=== PATIENT | female | born 1950 ===

== ENCOUNTER 2025-01-30 09:11 | Outpatient (AMB) | payer MEDICARE, MEDICAID, SELFPAY ==
--- OUTSIDE RECORDS SUMMARY | 2023-12-29 08:44 | XMS_ITS | Encounter Summary ---
Author Organization [facility] Address [address] [place] [address] Care Team Providers Care Automatic Die Cutting Machine Operator Name Role Phone James Ryan MD Primary Care Provider [phone] Encounter Details Date Type Department Care Team (Late st Contact Info) Description 12/29/2023 9:44 AM EDT Hospital Encounter TH HISTORIC ENCOUNTERS EASTERN CONVERSION ONLY Joelle Campbell, DO [address] [place] [address] Social History Tobacco Use Types Packs/Day Years Used Date Smoking Tobacco: Never Smokeless Tobacco: Never Alcohol Use Standard Drinks/Week Comments No 0 (1 standard drink = 0.6 oz pur e alcohol) Housing Instability Answer Date Recorde d Are you worried that in the next 2 months you may not have stable housing? No 08/30/2024 Food Access & Nutrition Answer Date Rec orded Do you have access to a vari ety of food including fruits and vegetables? Yes 08/30/2024 Financial Risk Answer Date Recorded How hard is it for you to pa y for the very basics like food, housing, medical care, and air conditioning / heating? Somewhat hard 08/30/2024 Transportation Answer Date Recorded Has the lack of transportati on kept you from meetings, work, or from getting things needed for daily living? No Has the lack of transportati on kept you from medical appointments or from getting medications? No 08/30/2024 Social Isolation Answer Date Recorded How often do you feel lonely or isolated from those around you? Not asked 08/30/2024 Food Risk Answer Date Recorded Within the past 12 months we worried whether our food would run out before we got money to buy more. Never true 08/30/2024 Within the past 12 months th e food we bought just didn't last and we didn't have money to get more. Never true 08/30/2024 Dependent Care Answer Date Recorded Do you need help finding or paying for care for your loved ones. For example, summer child caregiver or elderly care for an older adult? No 08/30/2024 Education Answer Date Recorded Do you think completing more education or training, like finishing a GED, going to college, or learning a trade, would be helpful for you? N/A 08/30/2024 Employment and Income Answer Date Recor ded During the last four weeks, have you been actively looking for work? No 08/30/2024 Living Situation Answer Date Recorded What is your living situation? Unrecognized valu e 08/30/2024 Comments No Sex and Gender Information Value Date Recorded Sex Assigned at Female 06/03/2024 9:31 AM EDT Legal Sex Female 2:52 AM EST Gender Identity Female 06/03/2024 9:31 AM EDT Sexual Orientation Straight 06/03/2024 9: 31 AM EDT documented as of this encounter Last Filed Vital Signs Vital Sign Reading Time Taken Comments Blood Pressure 142/80 12/29/2023 9:55 AM EDT Sit ting Left arm Pulse 69 12/29/2023 9:55 AM EDT Temperature - - Respiratory Rate - - Oxygen Saturation - - Inhaled Oxygen Concentration - - Weight 59 kg (130 lb) 12/29/2023 9:55 AM EDT Height 162.6 cm (5' 4 ) 12/29/2023 9:55 AM EDT Body Mass Index 22.31 12/29/2023 9:55 AM EDT documented in this encounter Progress Notes * Joelle Campbell DO - 12/29/2023 10:00 AM EDT Images from the original note were not included. 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 States the healing process was prolonged. Now her knee does feel much better. Reports the contralateral knee is now causing her discomfort. Also during the postoperative time she fell and broke her wrist and required surgery in the wrist. She developed infection at the surgical site as well. Currently biggest complaint remains ongoing arthralgias. She does get steroid injections for this. Still with some occasional bruises. Feels that yesterday she developed a sore throat with a low-grade temperature. No cough shortness of breath or congestion. Constitutional: See above Resp/CV: No cough, shortness of breath, chest pain GI: No nausea, vomiting, diarrhea, Skin: No rashes Neuro: No headaches, dizziness, neuropathy Musculoskeletal: No bone pain, + joint pain. Hem/Lymph : No palpable lymph nodes, Oncology history: Patient first presented in August 2022 with easy bruising and was seen by Dr. Chopra. She has had persistence of the symptoms but not also notably persistence of mild leukocytosis with WBC between 12 and 17,000. Differential is essentially normal. Hemoglobin is 13 platelet count 139,000. As of 01/13/2022. No febrile difficulties. Patient is not aware of any use of steroid. She is followed by rheumatology. She is not using fluticasone on any regular basis Prior laboratory data within the course of the last few months patient did have mild elevation of rheumatoid factor (less than 15), ALEA screen was positive with a titer of 1-320 in a nucleolar pattern. Lyme testing had been negative. Previously there have been no evidence of abnormality with regardto coags or von Willebrand factor activity or platelet aggregation studies. As noted no constitutional complaints at this time Objective Last Vitals Vitals: 12/29/23 0955 BP: 142/80 Pulse: 69 Temp: 98 ??F (36.7 ??C) TempSrc: Temporal SpO2: 100% Weight: 59 kg (130 lb) Height: 5' 4 (1.626 m) PainLoc: Generalized ECO General: Elderly, well-nourished woman, seated comfortably. HENT: no scleral icterus Lymph: No palpable cervical, supraclavicular or axillary adenopathy. Resp: clear to auscultation bilaterally Cardio: regular rate and rhythm, no murmurs Abdomen: soft non tender, non distended MSK: trace edema at both ankles. .Neuro: alert and oriented, normal speech Medications Current Outpatient Medications: ? CARTIA XT 240 MG 24 hr capsule ? cephalexin (KEFLEX) 500 MG capsule ? Cholecalciferol (D 1000) 1000 units capsule ? clonazePAM (KlonoPIN) 0.5 MG tablet ? cyclobenzaprine (FLEXERIL) 5 MG tablet ? fluticasone (FLONASE) 50 MCG/ACT nasal spray ? hydroCHLOROthiazide (MICROZIDE) 12.5 MG capsule ? oxyCODONE (ROXICODONE) 5 MG immediate release tablet ? pravastatin (PRAVACHOL) tablet 20 mg ? promethazine (PHENERGAN) 12.5 MG tablet ? vitamin E (E-400) 400 UNIT capsule Allergies No Known Allergies Past medical history, past surgical history, and family history reviewed. Medical history Past Medical History: Diagnosis Date ? Hypertension ? Osteoporosis Surgical history Past Surgical History: Procedure Laterality Date ? BACK SURGERY ? SHOULDER SURGERY Family history Family History Problem Relation Age of Onset ? Hypertension Mother ? Hyperlipidemia Mother ? Hyperlipidemia Father ? Heart disease Sister ? Clotting disorder Sister Social history She is , lives with her , both are korean speaking. She lives in [place]. Son is next of kin. Labs: Relevant data reviewed. Assessment & Plan 73 year old female with history of easy bruising and monoclonal b cell lymphocytosis. Bone marrow biopsy shows involvement by b cell lymphoproliferative disorder which is not further classified. CT imaging shows no adenopathy or splenomegaly. She has had full work up for extent of her bruising, all of which has been negative at this time. Repeat blood count shows ongoing improvement of WBC down to 12.4, no anemia or thrombocytopenia, nosignificant rise of lymphocytes. Monoclonal B cell lymphocytosis / CLL, IGVH mutated Continue to monitor on active surveillance, no indication for therapy at this time Ordered labs to be done again in 3 months CBCD, CMP, quantitative immunoglobulins. call sooner with any new symptoms or concerns. Pancreatic cyst/IPMN remains stable, no intervention Next MRI recommended by radiology April 2025. Ishmael Campbell, DO - Hematology/Oncology [facility] CC:James Ryan MD documented in this encounter Plan of Treatment Upcoming Encounters Date Type Department Care Team (Late st Contact Info) Description 02/12/2025 11:00 AM EST Office Visit Internal Medicine - [address] [phone] James Rayn MD [address] [place] [address] 02/27/2025 12:30 PM EST Appointment [facility] [address] [place] [id number] Dillan Ng MD [address] [facility] [address] [place] [address] documented as of this encounter Procedures Procedure Name Priority Date/Time Associated Diagnosis Comments ..MISCELLANEOUS REFERENCE LAB TEST 12/29/2023 documented in this encounter Results * Miscellaneous reference lab test (12/29/2023) us Provider Onbase LAB BLOOD ORDERABLES Final Re sult documented in this encounter Visit Diagnoses Not on filedocumented in this encounter Care Teams Automatic Die Cutting Machine Operator Relationship Specialty Start Date End Date James Ryan MD PCP - General Internal Medicine 01/28/15 01/22/24 documented as of this encounter
--- NOTE | 2025-01-30 09:10 | A.PHYSOV_ITS ---
Intake Visit Reasons: Right knee injection Intake Note: Patient is a 74 year old female here today for right shoulder injection. Gm Mobile Required: No Allergies No Known Allergies Allergy (Verified 01/30/25 09:12) PFS Surgical History H/O shoulder surgery (Unknown) Social History Patient Tobacco Use Status: Never used Tobacco Current occupational status: retired Office Procedures AMB Knee Injection AMB Knee Injection Procedure Details: Right Knee injection: The risks, benefits and complications of the right knee injection were discussed with the patient including but not limited to increased serum glucose, infection, nerve pain, fat atrophy, pigment augmentation, bleeding and pain. All questions were answered to the patient's satisfaction. Verbal consent was obtained. The patient was eager to proceed. Using aseptic technique with Betadine, ethyl chloride was then used to desensitize the skin. Using a 22-gauge needle 40mg of Kenalog and 3 mL 2% lidocaine were injected into the knee joint. A Band-Aid was applied. Patient tolerated the procedure well without immediate complication. Postinjection instructions were given. Knee Injection - : Right All charges added?: Procedure code (CPT) selection complete Office Meds Kenalog 40 mg/mL suspension for injection Performing Provider: SASHA Khalil Performing Location: [facility] Administered by: SASHA Khalil on 01/30/25 09:29 Dose Route Admin Location Dispensed Lot Number Expiration Date [facility] Medical Language Specialist 40 mg intra-articular 1 mL [id number] [employer] Total Dispensed Waste 1 mL 0 % lidocaine (PF) 20 mg/mL (2 %) injection solution Performing Provider: SASHA Khalil Performing Location: [facility] Administered by: SASHA Khalil on 01/30/25 09:29 Dose Route Admin Location Dispensed Lot Number Expiration Date [facility] Medical Language Specialist 60 mg intra-articular 3 mL [id number] Total Dispensed Waste 3 mL 0 % Assessment & Plan Assessment & Plan (1) Primary osteoarthritis of right knee: Code(s): M17.11 - Unilateral primary osteoarthritis, right knee Category: Medical Plan Ms. Gooden is a 74-year-old female seen in evaluation today for right knee osteoarthritis. Today she consented to right knee corticosteroid injection. He was given post-injection instructions, recommend: Moist heat compresses 15 minutes 5 times daily. Continue low-impact activities such as walking, biking swimming. Follow-up in our office in 3 months as needed. Thank you for allowing me to participate in the care of your patient. Orders: Orders AMB Knee Injection Today M17.11 - Unilateral primary osteoarthritis, right knee Coding Level of Care Code Procedure Only Diagnoses Primary osteoarthritis of right knee M17.11 CPT Codes AMB Knee Injection - Hip/Bursa Injection - 89470: Right ([id number])
--- OUTSIDE RECORDS SUMMARY | 2025-01-30 10:13 | XMS_ITS | Clinical Summary ---
Author Organization [facility] Address [address] [place] [address] Care Team Providers Care Employee Communications Coordinator Name Role Phone James Ryan MD Primary Care Provider [phone] Allergies No known active allergies Medications Medication Sig Dispensed Refills Start Date End Date Status vitamin E (E-400) 400 UNIT capsule Take 400 Units by mouth. 0 Active pravastatin (PRAVACHOL) tablet 20 mg Take 10 mg by mouth. 0 Active hydroCHLOROthiazide (MICROZIDE) 12.5 MG capsule TK 1 C PO QAM 1 11/21/2017 Active CARTIA XT 240 MG 24 hr capsule TK 1 C PO BID 1 10/31/2017 Active Cholecalciferol (D 1000) 1000 units capsule Take 1,000 Units by mouth. 0 Active clonazePAM (KlonoPIN) 0.5 MG tablet TK 1 T PO BID PRF ANXIETY FOR UP TO 28 DAYS 0 01/19/2018 Active fluticasone (FLONASE) 50 MCG/ACT nasal spray U 1 SPRAY IN BOTH NOSTRILS DAILY 4 01/19/2018 Active oxyCODONE (ROXICODONE) 5 MG immediate release tablet Take 1 tablet (5 mg total) by mouth every 6 (six) hours as needed for pain. Do not take until after surgery 30 tablet 0 07/30/2018 Active promethazine (PHENERGAN) 12.5 MG tablet Take 1 tablet (12.5 mg total) by mouth every 8 (eight) hours as needed for nausea. Do not take until after surgery 4 tablet 0 07/30/2018 Active cephalexin (KEFLEX) 500 MG capsule Take 1 capsule (500 mg total) by mouth 4 (four) times a day. Do not take until after surgery 4 capsule 0 07/30/2018 Active cyclobenzaprine (FLEXERIL) 5 MG tablet Take 1 tablet (5 mg total) by mouth 2 (two) times a day as needed for muscle spasms. 15 tablet 0 12/10/2018 Active Active Problems Problem Noted Date Diagnosed Date 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 Bruising 09/06/2021 Chronic constipation 05/14/2018 Chronic pain in right shoulder 12/15/2017 Spinal stenosis of lumbar re gion without neurogenic claudication 04/26/2017 Spinal stenosis 04/25/2017 Lumbar disc herniation with radiculopathy 2016 Ascending aortic aneurysm 10/10/2014 Overview: Overview: [facility] 10/06/14 Arthralgia 11/04/2013 Lumbar back pain 08/22/2011 Overview: Overview: L2-3 disc herniation; MRI 07/29 L4-L5 decompression with Dr. Briscoe on 04/25/2017 Back pain 07/13/2011 Tubular adenoma of colon 05/11/2011 Overview: Overview: 08/26 Renal cyst 11/07/2010 Overview: Overview: [facility] (PVU) 10/28-rpt Sono 1 yr Anxiety 12/17/2008 Pituitary adenoma 05/07/2008 Pulmonary nodule 10/31/2007 Overview: Overview: 10/[address] Lung 6 mos; CT 04/28 No Nodules Hyperlipidemia 09/13/2007 Hypertension 04/08/2005 Adverse reaction to anterior pituitary hormone 0 04/08/2005 Overview: Overview: surgery ; RT 3- [facility] update Family History Medical History Relation Name Comments Hyperlipidemia Father Hyperlipidemia Mother Hypertension Mother Clotting disorder Sister Heart disease Sister Relation Name Status Comments Father Mother Sister Social History Tobacco Use Types Packs/Day Years Used Date Smoking Tobacco: Never Smokeless Tobacco: Never Alcohol Use Standard Drinks/Week Comments No 0 (1 standard drink = 0.6 oz pur e alcohol) Sex and Gender Information Value Date Recorded Sex Assigned at Not on file Gender Identity Not on file Sexual Orientation Not on file Job Start Date Occupation Industry Not on file Not on file Not on file Last Filed Vital Signs Vital Sign Reading Time Taken Comments Blood Pressure 142/80 12/29/2023 9:55 AM EDT Pulse 69 12/29/2023 9:55 AM EDT Temperature 36.7 C (98 F) 12/29/2023 9:55 AM EDT Respiratory Rate - - Oxygen Saturation 100% 12/29/2023 9:55 AM EDT Inhaled Oxygen Concentration - - Weight 59 kg (130 lb) 12/29/2023 9:55 AM EDT Height 162.6 cm (5' 4 ) 12/29/2023 9:55 AM EDT Body Mass Index 22.31 12/29/2023 9:55 AM EDT Plan of Treatment Health Maintenance Due Date Last Done Comments Hepatitis C Screening 1950 Depression Screening 1962 Preventative Health Evaluation 1968 Colon Cancer Screening (Colonoscopy) 1995 Breast Cancer Screening (Mammogram) 2000 Shingrix-Zoster Vaccine (1 of 2) 2000 Fall Risk Assessment 2015 Osteoporosis Screening (DEXA Scan) 2015 DTap / Tdap / Td (3 - Td or Tdap) 08/16/2024 08/16/2014, 10/02/2006 COVID-19 Vaccine ( season) 2024 04/01/2021, 07/15/2020, 06/24/2020 Influenza Vaccine (#1) 2024 4, 02/23/2022, 12/28/2020, Additional history exists RSV Adult > 60+ Yrs or (1 - 1-dose 75+ series) 2025 Pneumococcal Vaccine Completed 01/23/2020, 12/12/2018, 01/13/2016 Hepatitis B Vaccines Aged Out No long er eligible based on patient's age to complete this topic RSV Ped < 20 months Aged Out No longe r eligible based on patient's age to complete this topic Care Teams Employee Communications Coordinator Relationship Specialty Start Date End Date James Ryan MD PCP - General Internal Medicine 04/10/20
--- OUTSIDE RECORDS SUMMARY | 2025-01-30 10:13 | XMS_ITS | Clinical Summary ---
Author Organization [facility] Address [address] [place] [address] Phone Care Team Providers Care Cost Estimating Engineer Name Role Phone James Ryan MD Primary Care Provider [phone] Allergies No known active allergies Medications cholecalcifero l (VITAMIN D-3) 25 mcg (1,000 unit) capsule Take 1 capsule (1,000 Units total) by mouth. Active vitamin E mixed 400 unit capsule Take 400 Units by mouth. Active dilTIAZem CD (CARDIZEM CD) 240 mg 24 hr capsule TAKE 1 CAPSULE(240 MG) BY MOUTH TWICE DAILY 180 capsule 09/03/19 25 Active acetaminophen (TylenoL) 325 mg tablet Take 3 tablets (975 mg total) by mouth every 8 (eight) hours if needed. 08/03/19 25 Active lidocaine 5 % cream Apply 1 each topically 1 (one) time each day. 08/03/19 25 Active docusate sodium (COLACE) 100 mg capsule Take 1 capsule (100 mg total) by mouth 2 (two) times a day. Active polyethylene glycol (MIRALAX) 17 gram packet Take 17 g by mouth 1 (one) time each day. Active senna (SENOKOT) 8.6 mg tablet Take 1 tablet (8.6 mg total) by mouth 1 (one) time each day. Active pravastatin (PRAVACHOL) 40 mg tablet Take 1 tablet (40 mg total) by mouth 1 (one) time each day. 90 tablet 1 09/18/19 25 Active furosemide (LASIX) 20 mg tablet Take 1 tablet (20 mg total) by mouth 1 (one) time each day. 90 each 3 09/18/19 25 Active Additional Information Patient not taking.Reported on 12/25/2024 ondansetron (ZOFRAN) 4 mg tablet Take 1 tablet (4 mg total) by mouth every 8 (eight) hours if needed for nausea. 20 tablet 1 12/13/19 25 Active omeprazole (PriLOSEC) [address] capsule Take 1 capsule (40 mg total) by mouth 1 (one) time each day. Do not crush or chew. 90 each 1 12/13/19 25 026 Active meclizine (ANTIVERT) 25 mg tablet Take 1 tablet (25 mg total) by mouth 3 (three) times a day if needed for dizziness. 45 tablet 1 12/18/19 25 Active spironolactone (ALDACTONE) 25 mg tablet 09/05/19 25 Active methylPREDNISo lone (MEDROL DOSPAK) 4 mg tablet See administration instructions. 11/07/19 25 Active lisinopriL (PRINIVIL,ZEST RIL) 10 mg tablet Take 1 tablet (10 mg total) by mouth 1 (one) time each day. 12/03/19 25 Active ibuprofen (ADVIL,MOTRIN) 800 mg tablet 1 tablet three times daily as needed 09/27/19 25 Active gabapentin (NEURONTIN) 100 mg capsule Take 1 capsule (100 mg total) by mouth. 08/03/19 25 Active diclofenac (CATAFLAM) 50 mg tablet Take 1 tablet (50 mg total) by mouth. 11/08/19 25 Active celecoxib (CeleBREX) 100 mg capsule Take 1 capsule (100 mg total) by mouth 1 (one) time each day. 11/26/19 25 Active buprenorphine (BUTRANS) 10 mcg/hour APPLY PATCH TO THE SKIN EVERY 7 DAYS REMOVE PATCH BEFORE APPLYING ANOTHER 12/12/19 25 Active amoxicillin (AMOXIL) 500 mg capsule TAKE 4 CAPSULES BY MOUTH ONE HOUR BEFORE DENTAL VISIT 09/27/19 25 Active clonazePAM (KlonoPIN) 0.5 mg tablet TAKE 1 TABLET(0.5 MG) BY MOUTH TWICE DAILY NEEDED FOR ANXIETY. MAX DAILY AMOUNT: 1 MG 56 tablet 01/02/20 25 Active oxyCODONE-acet aminophen (PERCOCET) 10-325 mg per tabletIndicati ons:Chronic pain syndrome Take 1 tablet by mouth every 6 (six) hours if needed for severe pain for up to 28 days. Max Daily Amount: 4 tablets 112 tablet 01/22/20 25 025 Active clonazePAM (KlonoPIN) 0.5 mg tablet TAKE 1 TABLET(0.5 MG) BY MOUTH TWICE DAILY NEEDED FOR ANXIETY. MAX DAILY AMOUNT: 1 MG 56 tablet 11/29/19 25 025 Discontin ued(Reord er) oxyCODONE-acet aminophen (PERCOCET) 10-325 mg per tabletIndicati ons:Chronic pain syndrome Take 1 tablet by mouth every 6 (six) hours if needed for severe pain for up to 28 days. Max Daily Amount: 4 tablets 112 tablet 12/25/19 25 025 Discontin ued(Reord er) oxyCODONE-acet aminophen (PERCOCET) 10-325 mg per tabletIndicati ons:Chronic pain syndrome Take 1 tablet by mouth every 6 (six) hours if needed for severe pain for up to 28 days. Max Daily Amount: 4 tablets 112 tablet 01/22/20 25 025 Discontin ued(Reord er) Active Problems Problem Noted Date Diagnosed Date Atrial fib/flutter, transient (CMS/HCC V24, CMS/ HCC V28) 12/12/2024 Status post closed fracture of right femur 09/11 Chronic pain syndrome 09/11/2024 CLL (chronic lymphocytic yin kemia) (CMS/HCC V24, CMS/HCC V28) 09/11/2024 Coronary artery calcification of [place] artery 0 09/04/2024 Overview (09/04/2024): - Incidentally noted on CT of the chest in 2022 - No anginal symptoms so managing medically Bilateral leg edema 01/23/2024 Assessment & Plan (01/23/2024 2:45 PM EST): Reported by patient and patient's son who is translating at the appointment today. However patient is completely euvolemic on exam today. Mention to patient that she could try utilizing compression stockings, can try elevating her feet when she is watching TV and adhering to a cardiac healthy diet which includes limiting salt and fat intake. Potential that calcium channel oksana diltiazem is contributing to the lower extremity edema. However, patient is taking 12.5 of hydrochlorothiazide and I believe that switching the patient to furosemide would contribute to better diuretic effect. Will have patient draw BMP in 1 week. Will patient take blood pressures over the next week and report values. Patient has been asked to report to the office if she experiences any new symptoms. Venous insufficiency 01/23/2024 Assessment & Plan (01/23/2024 2:47 PM EST): Reported by patient and patient's son who is translating at the appointment today. However patient is completely euvolemic on exam today. Mention to patient that she could try utilizing compression stockings, can try elevating her feet when she is watching TV and adhering to a cardiac healthy diet which includes limiting salt and fat intake. Potential that calcium channel oksana diltiazem is contributing to the lower extremity edema. However, patient is taking 12.5 of hydrochlorothiazide and I believe that switching the patient to furosemide would contribute to better diuretic effect. Will have patient draw BMP in 1 week. Will patient take blood pressures over the next week and report values. Patient has been asked to report to the office if she experiences any new symptoms. 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 Spinal stenosis of lumbar re gion without neurogenic claudication 03/11/2020 Chronic constipation 05/14/2018 Chronic pain in right shoulder 12/15/2017 Spinal stenosis 04/25/2017 Lumbar disc herniation with radiculopathy 2016 Ascending aortic aneurysm ([facility] V24) 10/11/19 15 Overview (09/04/2024): -Incidental finding by CAT scan several years ago -Saw cardiac surgery in 2016 for evaluation and was recommended to have yearly surveillance CT scans -Had an echocardiogram in 11/2020 which showed preserved ejection fraction of 55 to 60%, no regional wall motion abnormalities, normal diastolic function, no hemodynamically significant valve disease with trileaflet aortic valve, upper normal aortic root at 3.7 cm and dilated ascending aorta at 4.2 cm-anny to what we are seeing on CT scan below. -Repeat echocardiogram in 01/2022 revealed normal biventricular size. Normal right ventricular systolic function. Grossly normal left ventricular systolic function though all [place] are not well-visualized. Estimated ejection fraction 55 to 60%. Compared to prior study the ascending aorta may have grown slightly from 4.2 to 4.3 cm. Aortic root size is stable. The aortic arch was not well-visualized on today's study. - CT of the chest: 2022, No evidence of any measurement of the thoracic aorta on official report but did show evidence of coronary artery calcification; on my independent review, I get an ascending aortic measurement of 3.6 x 3.5 cm (sagittal by coronal dimensions)-which is likely normal for age and body surface area; and aortic root measurement of 3.9 cm in sagittal view-which may be mildly dilated or upper normal for age and body surface area Assessment & Plan (01/23/2024 1:51 PM EST): Patient had chest CT on 11/07/2023 the ascending aorta measures up to 4.2 x 4.1 cm, unchanged. Mild to moderate arthrosclerotic plaque. Normal caliber torturous descending thoracic aorta. This is an unchanged dilatation of the ascending aorta up to 4.2 cm. Plan will be to continue surveillance. Arthralgia 11/04/2013 Lumbar back pain 08/22/2011 Overview (05/17/2023): L2-3 disc herniation; MRI 07/29 L4-L5 decompression with Dr. Briscoe on 04/25/2017 Tubular adenoma of colon 05/11/2011 Overview (05/17/2023): 08/26 Renal cyst 11/07/2010 Overview (05/17/2023): Ascher (PVU) 10/28-rpt Sono 1 yr Anxiety 12/17/2008 Pituitary adenoma ([facility] V24, CMS/HCC V28) Lung mass 10/31/2007 Overview (05/17/2023): 10/[address] Lung 6 mos; CT 04/28 No Nodules Hyperlipidemia 09/13/2007 Assessment & Plan (01/23/2024 2:48 PM EST): Patient has been advised to adhere to a cardiac healthy diet which includes fats low in sodium and fat. Patient is also currently utilizing pravastatin. Hypertension 04/08/2005 Assessment & Plan (01/23/2024 2:39 PM EST): Blood pressure is well-controlled. Patient has been asked to take blood pressure measurement every day at least 2 hours after she takes her blood pressure medications. Should report to the office if she receives values consistently that are outside normal limits. She has also been educated on signs of worsening symptoms and when to report to the office or when to present to the ED. Adverse reaction to anterior pituitary hormone 0 04/08/2005 Overview (05/17/2023): Overview: surgery ; RT 3- IMO update Encounters Date Type Department Care Team Description 01/15/2025 Telephone Internal Medicine - [address] [phone] James Ryan MD 01/09/2025 Telephone Internal Medicine - [address] [phone] Deb Link MA 12/25/2024 9:00 AM EDT Consult Gastroenterology - [place] [address] [place] [phone] Estrellita Espino NP Epigastric abdominal pain (Primary Dx); Gastroesophageal reflux disease, unspecified whether esophagitis present; Screening for colorectal cancer 12/25/2024 Telephone Gastroenterology - [place] [address] [place] [phone] Estrellita Espino NP 12/12/2024 8:15 AM EDT Office Visit Internal Medicine - [address] [phone] James Ryan MD Atrial fib/flutter, transient (CMS/HCC V24, CMS/[facility] V28) (Primary Dx); Generalized abdominal pain; Lumbar disc herniation with radiculopathy 12/12/2024 [facility] [address], [place] [phone] James Ryan MD 12/12/2024 [facility] [phone] James Ryan MD 12/06/2024 [facility] [address], [place] [phone] James Ryan MD 12/05/2024 [facility] [phone] James Ryan MD 12/02/2024 [facility] [address] [phone] James Ryan MD 11/25/2024 8:52 AM EDT - 11/25/2024 11:59 PM EDT [facility] [address] [place], [place] [address] [phone] Wheeze Discharge Disposition: Home or Self Care 11/25/2024 [facility] [address] [phone] James Ryan MD from Last 3 Months Immunizations Immunization Administration Dates Next Due Pfizer SARS-CoV-2 COVID-19, mRNA, LNP-S, preservative free 04/01/2021,07/15/2020,06/24/2020 Surgical History Surgery Date Site/Laterality Comments OTHER SURGICAL HISTORY 07/23 PROCEDURE: PAP SMEAR (1 SLIDE); COMMENT: Dulce; neg OTHER SURGICAL HISTORY 07/24 PROCEDURE: MAMMOGRAM; COMMENT: neg OTHER SURGICAL HISTORY 02/22 PROCEDURE: NE ECHO TRANSTHORAC R-T 2D W/WO M-MODE REC COMP; COMMENT: neg OTHER SURGICAL HISTORY 02/20 PROCEDURE: DUAL ENERGY X-RAY ABSORPTIOMETRY; COMMENT: normal COLONOSCOPY 08/25/08 PROCEDURE: NE COLONOSCOPY STOMA DX INCLUDING COLLJ SPEC SPX; COMMENT: Up to cecum, good preparation, small rectal polyp removed. BACK SURGERY 04/25/2017 Right PROCEDURE: HISTORICAL BACK SURGERY; COMMENT: right L4-L5 decompression BACK SURGERY PROCEDURE: HISTORICAL BACK SURGERY; COMMENT: lumbar decompression SHOULDER SURGERY 07/2018 Right PROCEDURE: HISTORICAL SHOULDER SURGERY; COMMENT: not helpful BACK SURGERY PROCEDURE:BACK SURGERY SHOULDER SURGERY PROCEDURE:SHOULDER SURGERY Medical History Medical History Date Comments Anterior pituitary hormones causing adverse effect in therapeutic use 04/08/2005 DX:Anterior pituitar y hormones causing adverse effect in therapeutic use; COMMENT: surgery ; RT 3- Other and unspecified hyperlipidemia 09/13/2007 DX:Other and unspecified hyperlipidemia Historical Medical DX 10/31/2007 DX:Pulmona ry nodule; COMMENT: 10/[address] Lung 6 mos Pituitary adenoma (CMS/HCC V 24, CMS/HCC V28) 05/07/2008 DX:Pituitary adenoma (HCC) Essential hypertension, benign 04/08/2005 D X:Essential hypertension, benign Renal cyst 11/07/2010 DX:Renal cyst Basal cell carcinoma (BCC) of face 01/14/2020 DX:Basal cell carcinoma (BCC) of face; COMMENT: Left nare, right inner cheek under eye, BX 12/23/2019 referred for MOHS surgery Allergic rhinitis due to pollen 06/13/2019 DX:Allergic rhinitis due to pollen Spondylosis of lumbar region without myelopathy or radiculopathy 05/15/2019 DX:Spondylosis of lumbar r egion without myelopathy or radiculopathy Chronic constipation DX:Chronic constipation Hypertension DX:Hypertension Osteoporosis DX:Osteoporosis Family History Medical History Relation Name Comments Hyperlipidemia Father Hypertension Father Other: pvd Father Other: Other Maternal Grandfather paralys is later in life Stroke Maternal Grandmother Coronary artery disease Mother suddenly in the field 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 and lived on Hyperlipidemia Mother Hypertension Mother No Known Problems Paternal Grandfather Other: Other Paternal Grandmother in childbirth Other: aortic aneurysm Sister 1 of dissection/rupture No Known Problems Sister 2 Clotting disorder Sister 3 Heart disease Sister 3 No Known Problems Son Breast cancer Neg Hx Relation Name Status Comments Father Maternal Grandfather Maternal Grandmother Mother Paternal Grandfather Paternal Grandmother Sister 1 Sister 2 Alive Sister 3 Son Alive Social History Tobacco Use Types Packs/Day Years Used Date Smoking Tobacco: Never Smokeless Tobacco: Never Tobacco Cessation:Counseling Given: Not Answered Alcohol Use Standard Drinks/Week Comments No 0 [...] care for your loved ones. For example, child welfare assistant or elderly care for an older adult? [...] Orientation Straight 06/03/2024 9: 31 AM EDT Obstetrics History Last Filed Vital Signs Vital Sign Reading Time Taken Comments Blood Pressure 100/60 12/25/2024 9:03 AM EDT Pulse 103 12/25/2024 9:03 AM EDT Temperature 37.1 C (98.7 F) 06/19/2024 1:11 PM EDT Respiratory Rate - - Oxygen Saturation 96% 12/25/2024 9:03 AM EDT Inhaled Oxygen Concentration - - Weight 64.7 kg (142 lb 9.6 oz) 12/25/2024 9:03 A M EDT Height 162.6 cm (5' 4 ) 12/25/2024 9:03 AM EDT Body Mass Index 24.48 12/25/2024 9:03 AM EDT Plan of Treatment Upcoming Encounters Date Type Department Care Team (Late st Contact Info) Description 02/12/2025 11:00 AM EST Office Visit Internal Medicine - [address] [phone] James Ryan MD [address] [place] [address] 02/27/2025 12:30 PM EST Appointment [facility] [address] [place] [phone] Dillan Ng MD [address] [facility] [address] [place] [address] Health Maintenance Due Date Last Done Comments Colorectal Cancer Screening: Colonoscopy 1950 Zoster Vaccines (1 of 2) 1969 Falls Risk Assessment 02/26/2022 Hepatitis C Screening 02/26/2022 Medicare Annual Wellness Visit 02/26/2022 Osteoporosis Screening (Bone Density Screening) 02/26/2022 Breast Cancer Screening 12/11/2023 12/11/19, 07/09/2021, 01/01/2021, Additional history exists COVID-19 Vaccine ( season) 2024 04/01/2021, 07/15/2020, 06/24/2020 Influenza Vaccine (#1) 2024 4, 02/23/2022, 12/28/2020, Additional history exists RSV Immunization Adult Patients (1 - 1-dose 75+ series) 2025 Social Influencers of Health Screening 08/30/2025 08/30/2024 Hypertension/CHF/CAD Annual BMP Blood Test 09/11/2025 09/11/2024, 09/04/2024, 08/29/2024, Additional history exists Cholesterol Screening (Lipid Panel) 04/15/2029 04/15/2024, 10/24/2023, 09/19/2023 DTaP,Tdap,and Td Vaccines (5 - Td or Tdap) 03/05/2034 03/05/2024, 12/06/2023, 08/16/2014, Additional history exists Pneumococcal Vaccine: 50+ Years Completed 01/23/2020, 12/12/2018, 01/13/2016 Depression Screening Completed 05/25/2024 HIB Vaccines Aged Out No longer eligi ble based on patient's age to complete this topic HPV Vaccines Aged Out No longer eligi ble based on patient's age to complete this topic Hepatitis A Vaccines Aged Out No long er eligible based on patient's age to complete this topic Hepatitis B Vaccines Aged Out No long er eligible based on patient's age to complete this topic IPV Vaccines Aged Out No longer eligi ble based on patient's age to complete this topic MMR Vaccines Aged Out No longer eligi ble based on patient's age to complete this topic Meningococcal ACWY Vaccine Aged Out N o longer eligible based on patient's age to complete this topic Meningococcal B Vaccine Aged Out No l onger eligible based on patient's age to complete this topic RSV Immunization Patients Under 20 months Aged Out No longer eligible based on patient's age to complete this topic Varicella Vaccines Aged Out No longer eligible based on patient's age to complete this topic Goals Goal Patient Goal Type Associated Problems Recent Progress Patient-Stated? Author Autogenera indu Goal Care Plan Autogenerated Problem No Dipti Kirkpatrick Procedures Procedure Name Priority Date/Time Associated Diagnosis Comments XR CHEST 2 VIEWS Routine 11/25/2024 8:56 AM EDT Wheeze BASIC METABOLIC PANEL Routine 09/11/2024 1:52 PM EDT Venous insufficiency LIPID PANEL WITH REFLEX TO DIRECT LDL Routine 04/15/2024 11:46 AM EST Atrial fib/flutter, transient (CMS/HCC V24, CMS/HCC V28) Primary hypertension SCREENING MAMMOGRAPHY BI 2-VIEW BREAST INC CAD Routine 12/10/2021 1:57 PM EDT Encounter for screening mammogram for malignant neoplasm of breast from Last 3 Months or Most Recently Relevant to Health Maintenance Results * XR Chest 2 Views (11/25/2024 8:56 AM EDT) Anatomical Region Laterality Modality Body Radiographic Alecia ging 11/25/2024 10:1 8 AM EDT Impressions 11/25/2024 10:25 AM EDT No evidence of an acute chest process. POS - [id number] -------- FINAL REPORT -------- Dictated By: Pilar Troncoso Dictated Date: 11/25/2024 10:18 ET Assigned Physician: Pilar Troncoso Reviewed and Electronically Signed By: Pilar Troncoso Signed Date: 11/25/2024 10:25 ET Workstation ID: [id number] Transcribed By: Self Edit Transcribed Date: 11/25/2024 10:18 ET Narrative 11/25/2024 10:25 AM EDT EXAM: Chest x-ray HISTORY: Episodic wheeze. COMPARISON: 06/19/2024, 06/28/2023, 04/09/2021, and 09/10/2020 FINDINGS: PA and lateral views of the chest were performed. Mild linear opacities at the left lung base probably represent atelectasis or scarring. Stable minimal linear scarring in the left mid lung. No focal infiltrate, pleural effusion, or evidence of pulmonary edema. Heart is not enlarged. Stable tortuous thoracic aorta. Mediastinal contours are unchanged. Chronic scoliotic curvature of the thoracolumbar spine with multilevel degenerative changes. Procedure Note Pilar Troncoso MD - 11/25/2024 EXAM: Chest x-ray HISTORY: Episodic wheeze. COMPARISON: 06/19/2024, 06/28/2023, 04/09/2021, and 09/10/2020 FINDINGS: PA and lateral views of the chest were performed. Mild linear opacities at the left lung base probably represent atelectasisor scarring. Stable minimal linear scarring in the left mid lung. No focalinfiltrate, pleural effusion, or evidence of pulmonary edema. Heart is notenlarged. Stable tortuous thoracic aorta. Mediastinal contours areunchanged. Chronic scoliotic curvature of the thoracolumbar spine withmultilevel degenerative changes. IMPRESSION: No evidence of an acute chest process. POS - [id number] -------- FINAL REPORT -------- Dictated By: Pilar Troncoso Dictated Date: 11/25/2024 10:18 ET Assigned Physician: Pilar Troncoso Reviewed and Electronically Signed By: Pilar Troncoso Signed Date: 11/25/2024 10:25 ET Workstation ID: [id number] Transcribed By: Self Edit Transcribed Date: 11/25/2024 10:18 ET us Richard Vanegas DO IMG XR PROCEDURES Final Res ult * (ABNORMAL) Basic metabolic panel (09/11/2024 1:52 PM EDT) Sodium 136 133 - 145 mmol/L LAB CHEMISTRY METHOD 09/11/2024 6:47 PM EDT [facility] Potassium 3.9 3.5 - 5.5 mmol/L LAB CHEMISTRY METHOD 09/11/2024 6:47 PM EDT [facility] Chloride 105 96 - 110 mmol/L LAB CHEMISTRY METHOD 09/11/2024 6:47 PM [facility] CO2 23 21 - 32 mmol/L LAB CHEMISTRY METHOD 09/11/2024 6:47 PM T [facility] Anion Gap 8 3 - 11 LAB CHEMISTRY METHOD 09/11/2024 6:47 PM [facility] Glucose 103(H) 70 - 100 mg/dL LAB CHEMISTRY METHOD 09/11/2024 6:47 PM EDT [facility] BUN 19 5 - 25 mg/dL LAB CHEMISTRY METHOD 09/11/2024 6:47 PM EDT [facility] Creatinine 1.31(H) 0.50 - 1.10 mg/dL LAB CHEMISTRY METHOD 09/11/2024 6:47 PM EDT [facility] eGFR 43(L) >=60 mL/min/1. 73m2 LAB CHEMISTRY METHOD 09/11/2024 6:47 PM EDT [facility] Comment:Calculation based on the Chronic Kidney Disease Epidemiology Collaboration (CKD-EPI) equation refit without adjustment for race. BUN/Creatinine Ratio 14.5 LAB CHEMISTRY METHOD 09/11/2024 6:47 PM EDT [facility] Calcium 9.2 8.5 - 10.5 mg/dL LAB CHEMISTRY METHOD 09/11/2024 6:47 PM EDT [facility] Blood Venous blood specimen / Unknown Venipuncture / Unknown 09/11/2024 1:52 PM EDT 09/11/2024 1:52 PM EDT us Grace Rose MD LAB BLOOD ORDERABLES Final Resu lt [facility] [address] [place] [address], * (ABNORMAL) Lipid panel with reflex to direct LDL (04/15/2024 11:46 AM EST) Cholesterol 243(H) 0 - 200 mg/dL LAB CHEMISTRY METHOD 04/15/2024 3:30 PM EST [facility] Triglycerides 231(H) 0 - 150 mg/dL LAB CHEMISTRY METHOD 04/15/2024 3:30 PM EST [facility] HDL 85 >=40 mg/dL LAB CHEMISTRY METHOD 04/15/2024 3:30 PM EST [facility] LDL Calculated 112(H) 0 - 100 mg/dL LAB CHEMISTRY METHOD 04/15/2024 3:30 PM EST [facility] VLDL Cholesterol Alexis 46.2 mg/dL LAB CHEMISTRY METHOD 04/15/2024 3:30 PM EST [facility] Non HDL Chol. (LDL+VLDL) 158(H) <145 mg/dL LAB CHEMISTRY METHOD 04/15/2024 3:30 PM EST [facility] Chol/HDL Ratio 2.9 0.0 - 4.4 LAB CHEMISTRY METHOD 04/15/2024 3:30 PM EST [facility] Blood Venous blood specimen / Unknown Venipuncture / Unknown 04/15/2024 11:46 AM EST 04/15/2024 11:46 AM EST us James Ryan MD LAB BLOOD ORDERABLES Final Res ult [facility] [address] [place] [address], * SCREENING MAMMOGRAPHY BI 2-VIEW BREAST INC CAD (12/10/2021 1:57 PM EDT) Anatomical Region Laterality Modality Radiographic Alecia ging 12/08/2020 3:04 PM EDT Narrative 12/13/2021 12:10 PM EDT This is a summary report. The complete report is available in the patient's medical record. If you cannot access the medical record, please contact the sending organization for a detailed fax or copy. Exam: Screening mammogram Findings: Digital bilateral full-field screening mammography is performed with tomosynthesis and interpreted with the aid of computer-aided detection. Comparison is made with 07/09/2021 and as far back as 07/17/2017. Breast parenchyma is composed of scattered fibroglandular densities. No new suspicious mass, architectural distortion, or suspicious calcifications. Impression: No mammographic evidence of malignancy. BI-RADS 1 - negative Procedure Note Pilar Troncoso MD - 03/08/2022 This is a summary report. The complete report is available in thepatient's medical record. If you cannot access the medical record, pleasecontact the sending organization for a detailed fax or copy. Exam: Screening mammogram Findings: Digital bilateral full-field screening mammography is performedwith tomosynthesis and interpreted with the aid of computer-aideddetection. Comparison is made with 07/09/2021 and as far back as07/17/2017. Breast parenchyma is composed of scattered fibroglandular densities. Nonew suspicious mass, architectural distortion, or suspiciouscalcifications. Impression: No mammographic evidence of malignancy. BI-RADS 1 - negative us James Ryan MD IMG XR PROCEDURES Final Result from Last 3 Months or Most Recently Relevant to Health Maintenance Additional Health Concerns Active Problems Noted Date Diagnosed Date Autogenerated Problem 12/27/2024 Insurance MEDICA[place] - [place] MEDICARE Care Teams Cost Estimating Engineer Relationship Specialty Start Date End Date James Ryan MD [address] [place] [address] PCP - General Internal Medicine 01/23/24
--- OUTSIDE RECORDS SUMMARY | 2025-01-30 10:13 | XMS_ITS | Encounter Summary ---
Author Organization [facility] Address [address] [place] [address] Care Team Providers Care Checkroom Chief Name Role Phone James Ryan MD Primary Care Provider [phone] Reason for Visit * Reason Onset Date Comments Medicare Annual Wellness Visit Subsequent 2024 AWV DUE after 12/05/2024 Encounter Details Date Type Department Care Team ([facility] Contact Info) Description 01/09/2025 Telephone Internal Medicine - [facility] [address] [place] [phone] Deb Link MA Social History Tobacco Use Types Packs/Day Years [...] for your loved ones. For example, child caregiver private home or elderly care for an older adult? [...] AM EDT documented as of this encounter Progress Notes * Deb Link MA - 01/27/2025 4:54 PM EST Patients son, Enmanuel Gooden, returned my call @ 2:20 pm today. 3rd Outreach Spoke with Enmanuel Gooden in reference to scheduling an in person Annual Wellness Visit appt oswald/[facility] Well[facility] Nurse after 12/05/2024. Patient declined to book stating, No. That's ok. Transfer to Deb Link @ [phone]. PT is on the December/2024 report. * Deb Link MA - 01/27/2025 12:57 PM EST Patients son, Enmanuel Gooden, returned my call on 01/10/2025 @ 9:30 am and @ 3:28 pm. 2nd Outreach Message left for patient to contact the Quality Department in reference to booking an in person Annual Wellness Visit appt w/Gene Rios Nurse after 12/05/2024. Transfer to Deb Link @ [phone]. PT is on the December/2024 report. * Deb Link MA - 01/09/2025 2:38 PM EDT Message left for patient to contact the Quality Department in reference to booking an in person Annual Wellness Visit appt w/Gene Rios Nurse after 12/05/2024. Transfer to Deb Link @ [id number]. PT is on the December/2024 report. documented in this encounter Plan of Treatment Upcoming Encounters Date Type Department Care Team (Late st Contact Info) Description 02/12/2025 11:00 AM EST Office Visit Internal Medicine - [address] [phone] James Ryan MD [address] [place] [address] 02/27/2025 12:30 PM EST Appointment [facility] Endoscopy [address] [place] [phone] Dillan Ng MD [address] [address] documented as of this encounter Goals Goal Patient Goal Type Associated Problems Recent Progress Patient-Stated? Author Autogenera indu Goal Care Plan Autogenerated Problem No Dipti Kirkpatrick documented as of this encounter Visit Diagnoses Not on filedocumented in this encounter Additional Health Concerns Active Problems Noted Date Diagnosed Date Autogenerated Problem 12/27/2024 Assessment Noted Time PHQ-9 Depression Total Score: 11 025 10:22 AM EST documented as of this encounter Care Teams Checkroom Chief Relationship Specialty Start Date End Date James Ryan MD [address] [place] [address] PCP - General Internal Medicine 01/23/24 documented as of this encounter
--- OUTSIDE RECORDS SUMMARY | 2025-01-30 10:13 | XMS_ITS ---
Author Organization [facility] Address [address] [place] [address] Phone Care Team Providers Care Tyre Finisher And Examiner Name Role Phone James Ryan MD Primary Care Provider [phone] Active Problems Problem Noted Date Diagnosed Date Atrial fib/flutter, transient (CMS/HCC V24, CMS/ HCC V28) 12/12/2024 Status post closed fracture of right femur 09/11 Chronic pain syndrome 09/11/2024 CLL (chronic lymphocytic yin kemia) (CMS/HCC V24, CMS/HCC V28) 09/11/2024 Coronary artery calcification of manzanita artery 0 09/04/2024 Overview (09/04/2024): - Incidentally [...] herniation with radiculopathy 2016 Ascending aortic aneurysm (CMS/HCC V24) 10/11/19 15 Overview (09/04/2024): -Incidental finding [...] (05/17/2023): 08/26 Renal cyst 11/07/2010 Overview (05/17/2023): Jolie (PVU) 10/28-rpt Sono 1 yr Anxiety 12/17/2008 Pituitary adenoma ([facility] V24, [facility] V28) Lung mass 10/31/2007 Overview (05/17/2023): 10/25 [...] 04/08/2005 Overview (05/17/2023): Overview: surgery ; RT - IMO update Current Treatment and Therapy Plans No current plan information found. Past Treatment and Therapy Plans No past plan information found. Lifetime Dose Tracking * Chemical Lifetime Dose Automatic Entry Manual Entr y CTDIvol 64.29 mGy 64.29 mGy 0 mGy
--- OUTSIDE RECORDS SUMMARY | 2025-01-30 10:13 | XMS_ITS | Encounter Summary ---
Author Organization [facility] Address [address] [place] [address] Care Team Providers Care Forming And Assembling Supervisor Name Role Phone James Ryan MD Primary Care Provider [phone] Encounter Details Date Type Department Care Team (Late st Contact Info) Description 08/05/2024 Lab Requisition [facility] - Main Lab [address] [facility] [address] Heidy Blanco MD [address] [place] [phone] Dysuria Social History Tobacco Use Types Packs/Day Years Used Date Smoking Tobacco: Never Smokeless Tobacco: Never Alcohol Use Standard Drinks/Week Comments No 0 (1 standard drink = 0.6 oz pur e alcohol) Comments No Sex and Gender Information Value Date Recorded Sex Assigned at Female 06/03/2024 9:31 AM EDT Legal Sex Female 2:52 AM EST Gender Identity Female 06/03/2024 9:31 AM EDT Sexual Orientation Straight 06/03/2024 9: 31 AM EDT documented as of this encounter Plan of Treatment Upcoming Encounters Date Type Department Care Team (Late Contact Info) Description 02/12/2025 11:00 AM EST Office Visit Internal Medicine - [address] [address] James Ryan MD [address] [place] [address] 02/27/2025 12:30 PM EST Appointment [facility] Endoscopy [address] [place] [phone] Dillan Ng MD 299 [facility] [address] [place] [address] documented as of this encounter Procedures Procedure Name Priority Date/Time Associated Diagnosis Comments URINALYSIS WITH REFLEX MICROSCOPIC AND CULTURE Routine 08/04/2024 8:45 PM EDT Dysuria ISSA URINE CULTURE TUBE Routine 08/04/2024 8:45 PM EDT Dysuria URINALYSIS WITH REFLEX MICROSCOPIC AND CULTURE Routine 08/04/2024 8:45 PM EDT Dysuria CULTURE URINE Routine 08/04/2024 8:45 PM EDT Dysuria documented in this encounter Results * Culture urine (08/04/2024 8:45 PM EDT) Pathologist [facility] Culture, Urine 10,000-49,000 CFU/mL Mixed bacterial morphotypes present suggestive of possible contamination during collection. Suggest appropriate recollection if clinically indicated. 08/06/2024 9:26 AM EDT [facility] Urine Urine specimen obtained by clean catch procedure / Unknown Non-blood Collection / Unknown 08/04/2024 8:45 PM EDT 08/05/2024 11:05 AM EDT us Heidy Blanco MD LAB MICROBIOLOGY - GENERAL ORD ERABLES Final Result [facility] [address] [place] [address], * (ABNORMAL) Urinalysis with reflex microscopic and culture (08/04/2024 8:45 PM EDT) [facility] Specific [place] Urine 1.015 1.003 - 1.030 LAB URINALYSIS - AUTOMATED METHOD 08/05/2024 11:05 AM EDT [facility] pH, Urine 5.5 5.0 - 8.0 pH LAB URINALYSIS - AUTOMATED METHOD 08/05/2024 11:05 AM [facility] Leukocytes, Urine Trace(A) Negative LAB URINALYSIS - AUTOMATED METHOD 08/05/2024 11:05 AM [facility] Nitrite, Urine Negative Negative LAB URINALYSIS - AUTOMATED METHOD 08/05/2024 11:05 AM [facility] Protein, Urine Trace <=Trace mg/dL LAB URINALYSIS - AUTOMATED METHOD 08/05/2024 11:05 AM [facility] Glucose, Urine 500(A) Negative mg/dL LAB URINALYSIS - AUTOMATED METHOD 08/05/2024 11:05 AM [facility] Ketones, Urine Negative Negative mg/dL LAB URINALYSIS - AUTOMATED METHOD 08/05/2024 11:05 AM [facility] Urobilinogen, Urine 0.2 0.2 - 1.0 mg/dL LAB URINALYSIS - AUTOMATED METHOD 08/05/2024 11:05 AM [facility] Bilirubin, Urine Negative Negative LAB URINALYSIS - AUTOMATED METHOD 08/05/2024 11:05 AM [facility] Blood, Urine Negative Negative LAB URINALYSIS - AUTOMATED METHOD 08/05/2024 11:05 AM [facility] RBC, Urine 2.5 0 - 4 /HPF LAB URINALYSIS - AUTOMATED METHOD 08/05/2024 11:05 AM [facility] WBC, Urine 0.8 0 - 4 /HPF LAB URINALYSIS - AUTOMATED METHOD 08/05/2024 11:05 AM [facility] Squamous Epithelial, Urine 11 0 - 60 /LPF LAB URINALYSIS - AUTOMATED METHOD 08/05/2024 11:05 AM [facility] Bacteria, Urine Negative Negative /HPF LAB URINALYSIS - AUTOMATED METHOD 08/05/2024 11:05 AM EDT [facility] Hyaline Casts, Urine 0.0 0 - 3 /LPF LAB URINALYSIS - AUTOMATED METHOD 08/05/2024 11:05 AM EDT [facility] Urine Urine specimen obtained by clean catch procedure / Unknown Non-blood Collection / Unknown 08/04/2024 8:45 PM EDT 08/05/2024 9:11 AM EDT us Heidy Blanco MD LAB URINE ORDERABLES Final Res ult [facility] [address] [place] [address], [place] [phone] * Issa urine culture tube (08/04/2024 8:45 PM EDT) Extra Tube Hold for add-ons. 08/05/2024 11:01 AM EDT [facility] Comment:Auto resulted. Urine Urine specimen obtained by clean catch procedure / Unknown Non-blood Collection / Unknown 08/04/2024 8:45 PM EDT 08/05/2024 9:11 AM EDT us Heidy Blanco MD LAB URINE ORDERABLES Final Res ult [facility] [address] [place] [address], [place] [phone] documented in this encounter Visit Diagnoses Diagnosis Dysuria documented in this encounter Additional Health Concerns Assessment Noted Time PHQ-9 Depression Total Score: 11 05/25/2 025 10:22 AM EST documented as of this encounter Care Teams Forming And Assembling Supervisor Relationship Specialty Start Date End Date James Ryan MD [address] [place] [phone] PCP - General Internal Medicine 01/23/24 documented as of this encounter
--- OUTSIDE RECORDS SUMMARY | 2025-01-30 10:14 | XMS_ITS | Encounter Summary ---
Author Organization [facility] Address [address] [place] [address] Care Team Providers Care Tow Motor Mechanic Name Role Phone James Ryan MD Primary Care Provider [phone] Encounter Details Date Type Department Care Team (Late st Contact Info) Description 08/28/2024 Lab Requisition [facility] - Main Lab [address] [facility] [place] [address] Alesia Jarrett MD [address] [place] [address] Hyperlipidemia, unspecified; Chronic lymphocytic leukemia of B-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 (CMS/HCC V24, CMS/HCC V28); Weakness Social History Tobacco Use Types Packs/Day Years [...] care for your loved ones. For example, early childhood or elderly care for an older adult? [...] AM EST Office Visit Internal Medicine - [facility] [address] [place] [address] James Ryan MD [address] [place] [address] 02/27/2025 12:30 PM EST Appointment [facility] Endoscopy [address] [place] [phone] Dillan Ng MD 299 [facility] [address] [place] [address] documented as of this encounter Procedures Procedure Name Priority Date/Time Associated Diagnosis Comments COMPLETE BLOOD COUNT Routine 08/29/2024 7:22 AM EDT Hyperlipidemia, unspecified Chronic lymphocytic leukemia of B-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 ([facility] V24, [facility] V28) Weakness BASIC METABOLIC PANEL Routine 08/29/2024 7:22 AM EDT Hyperlipidemia, unspecified Chronic lymphocytic leukemia of B-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 ([facility] V24, [facility] V28) Weakness documented in this encounter Results * (ABNORMAL) Complete blood count (08/29/2024 7:22 AM EDT) WBC 8.1 4.8 - 10.8 K/mcL LAB HEMETOLOGY METHOD 08/29/2024 10:[address] [facility] RBC 3.10(L) 3.80 - 4.80 M/mcL LAB HEMETOLOGY METHOD 08/29/2024 10:[address] [facility] Hemoglobin 9.0(L) 11.5 - 16.0 g/dL LAB HEMETOLOGY METHOD 08/29/2024 10:[address] [facility] Hematocrit 29.1(L) 35.0 - 47.0 % LAB HEMETOLOGY METHOD 08/29/2024 10:[address] [facility] MCV 94.8 79.0 - 98.0 FL LAB HEMETOLOGY METHOD 08/29/2024 10:[address] [facility] MCH 29.3 27.0 - 32.0 pcg LAB HEMETOLOGY METHOD 08/29/2024 10:[address] [facility] MCHC 30.9(L) 32.0 - 37.0 g/dL LAB HEMETOLOGY METHOD 08/29/2024 10:[address] [facility] RDW 18.1(H) 11.0 - 15.0 % LAB HEMETOLOGY METHOD 08/29/2024 10:[address] [facility] Platelets 307 130 - 400 K/mcL LAB HEMETOLOGY METHOD 08/29/2024 10:[address] [facility] MPV 9.5 7.0 - 11.0 FL LAB HEMETOLOGY METHOD 08/29/2024 10:[address] [facility] NRBC 0.0 <1.0 % LAB HEMETOLOGY METHOD 08/29/2024 10:[address] [facility] NRBC Absolute 0.00 <0.10 K/mcL LAB HEMETOLOGY METHOD 08/29/2024 10:[address] [facility] Blood Venous blood specimen / Unknown Venipuncture / Unknown 08/29/2024 7:22 AM EDT 08/29/2024 9:09 AM EDT Alesia Jarrett MD LAB BLOOD ORDERABLES Fin al Result [facility] [address] [place] [address], * (ABNORMAL) Basic metabolic panel (08/29/2024 7:22 AM EDT) Sodium 140 133 - 145 mmol/L LAB CHEMISTRY METHOD 08/29/2024 10:[address] [facility] Potassium 3.0(L) 3.5 - 5.5 mmol/L LAB CHEMISTRY METHOD 08/29/2024 10:[address] [facility] Chloride 107 96 - 110 mmol/L LAB CHEMISTRY METHOD 08/29/2024 10:[address] [facility] CO2 26 21 - 32 mmol/L LAB CHEMISTRY METHOD 08/29/2024 10:[address] [facility] Anion Gap 7 3 - 11 LAB CHEMISTRY METHOD 08/29/2024 10:[address] [facility] Glucose 74 70 - 100 mg/dL LAB CHEMISTRY METHOD 08/29/2024 10:[address] [facility] BUN 11 5 - 25 mg/dL LAB CHEMISTRY METHOD 08/29/2024 10:[address] [facility] Creatinine 0.90 0.50 - 1.10 mg/dL LAB CHEMISTRY METHOD 08/29/2024 10:[address] [facility] eGFR 67 >=60 mL/min/1. 73m2 LAB CHEMISTRY METHOD 08/29/2024 10:[address] [facility] Comment:Calculation based on the Chronic Kidney Disease Epidemiology Collaboration (CKD-EPI) equation refit without adjustment for race. BUN/Creatinine Ratio 12.2 LAB CHEMISTRY METHOD 08/29/2024 10:[address] [facility] Calcium 8.3(L) 8.5 - 10.5 mg/dL LAB CHEMISTRY METHOD 08/29/2024 10:[address] [facility] Blood Venous blood specimen / Unknown Venipuncture / Unknown 08/29/2024 7:22 AM EDT 08/29/2024 9:09 AM EDT us Alesia Jarrett MD LAB BLOOD ORDERABLES Fin al Result [facility] [address] [place] [address], documented in this encounter Visit Diagnoses Diagnosis Hyperlipidemia, unspecified Chronic lymphocytic leukemia of B-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 (CMS/HCC V24, CMS/HCC V28) Weakness Other malaise and fatigue documented in this encounter Additional Health Concerns Assessment Noted Time PHQ-9 Depression Total Score: 11 025 10:22 AM EST documented as of this encounter Care Teams Tow Motor Mechanic Relationship Specialty Start Date End Date James Ryan MD [address] [place] [address] PCP - General Internal Medicine 01/23/24 documented as of this encounter
--- OUTSIDE RECORDS SUMMARY | 2025-01-30 10:14 | XMS_ITS | Encounter Summary ---
Author Organization [facility] Address [address] [place] [address] Care Team Providers Care 3Rd Grade Teacher Name Role Phone James Ryan MD Primary Care Provider [phone] Encounter Details Date Type Department Care Team (Late st Contact Info) Description 08/16/2024 Lab Requisition [facility] - Main Lab 299 Count Includes [facility] [place] [address] Alesia Jarrett MD [address] [place] [address] Hyperlipidemia, unspecified; Weakness; Chronic lymphocytic leukemia of B-cell type in remission (CMS/HCC V24, CMS/HCC V28) Social History Tobacco Use Types Packs/Day Years [...] AM EST Office Visit Internal Medicine - [address] [address] James Ryan MD [address] [place] [address] 02/27/2025 12:30 PM EST Appointment [facility] Endoscopy [address] [place] [phone] Dillan Ng MD 299 [facility] [address] [place] [address] documented as of this encounter Procedures Procedure Name Priority Date/Time Associated Diagnosis Comments THYROID STIMULATING HORMONE WITH REFLEX TO FREE T4 AND FREE T3 Routine 08/16/2024 6:24 AM EDT Hyperlipidemia, unspecified Weakness Chronic lymphocytic leukemia of B-cell type in remission ([facility] V24, [facility] V28) COMPLETE BLOOD COUNT Routine 08/16/2024 6:24 AM EDT Hyperlipidemia, unspecified Weakness Chronic lymphocytic leukemia of B-cell type in remission ([facility] V24, [facility] V28) FOLATE Routine 08/16/2024 6:24 AM EDT Hyperlipidemia, unspecified Weakness Chronic lymphocytic leukemia of B-cell type in remission ([facility] V24, [facility] V28) VITAMIN B12 Routine 08/16/2024 6:24 AM EDT Hyperlipidemia, unspecified Weakness Chronic lymphocytic leukemia of B-cell type in remission ([facility] V24, [facility] V28) COMPREHENSIVE METABOLIC PANEL Routine 08/16/2024 6:24 AM EDT Hyperlipidemia, unspecified Weakness Chronic lymphocytic leukemia of B-cell type in remission ([facility] V24, [facility] V28) documented in this encounter Results * (ABNORMAL) Folate (08/16/2024 6:24 AM EDT) Folate >20.0(H) 2.8 - 17.0 ng/ml LAB CHEMISTRY METHOD 08/16/2024 11:13 AM EDT [facility] Blood Venous blood specimen / Unknown Venipuncture / Unknown 08/16/2024 6:24 AM EDT 08/16/2024 9:46 AM EDT Alesia Jarrett MD LAB BLOOD ORDERABLES Fin al Result Performing Organization Address [facility]/ZIP Co de Phone Number [facility] [address] [place] [address], [place] [phone] * Vitamin B12 (08/16/2024 6:24 AM EDT) [facility] Vitamin B-12 318 250 - 900 pcg/mL LAB CHEMISTRY METHOD 08/16/2024 11:18 AM EDT [facility] Blood Venous blood specimen / Unknown Venipuncture / Unknown 08/16/2024 6:24 AM EDT 08/16/2024 9:46 AM EDT Alesia Jarrett MD LAB BLOOD ORDERABLES Fin al Result Performing Organization Address [facility] Co de Phone Number [facility] [address] [place] [address], [place] [phone] * Thyroid stimulating hormone with reflex to free t4 and free t3 (08/16/2024 6:24 AM EDT) [facility] TSH 1.02 0.40 - 4.00 mcIU/mL LAB CHEMISTRY METHOD 08/16/2024 2:01 PM EDT [facility] Blood Venous blood specimen / Unknown Venipuncture / Unknown 08/16/2024 6:24 AM EDT 08/16/2024 9:46 AM EDT Alesia Jarrett MD LAB BLOOD ORDERABLES Fin al Result Performing Organization Address City/[facility]/ZIP Co de Phone Number [facility] [address] [place] [address], [place] [phone] * (ABNORMAL) Comprehensive metabolic panel (08/16/2024 6:24 AM EDT) [facility] Sodium 137 133 - 145 mmol/L LAB CHEMISTRY METHOD 08/16/2024 11:14 AM [facility] Potassium 3.5 3.5 - 5.5 mmol/L LAB CHEMISTRY METHOD 08/16/2024 11:14 AM [facility] Chloride 101 96 - 110 mmol/L LAB CHEMISTRY METHOD 08/16/2024 11:14 AM [facility] CO2 26 21 - 32 mmol/L LAB CHEMISTRY METHOD 08/16/2024 11:14 AM [facility] Anion Gap 10 3 - 11 LAB CHEMISTRY METHOD 08/16/2024 11:14 AM [facility] Glucose 72 70 - 100 mg/dL LAB CHEMISTRY METHOD 08/16/2024 11:14 AM [facility] BUN 18 5 - 25 mg/dL LAB CHEMISTRY METHOD 08/16/2024 11:14 AM [facility] Creatinine 1.00 0.50 - 1.10 mg/dL LAB CHEMISTRY METHOD 08/16/2024 11:14 AM [facility] eGFR 59(L) >=60 mL/min/1. 73m2 LAB CHEMISTRY METHOD 08/16/2024 11:14 AM [facility] Comment:Calculation based on the Chronic Kidney Disease Epidemiology Collaboration (CKD-EPI) equation refit without adjustment for race. BUN/Creatinine Ratio 18.0 LAB CHEMISTRY METHOD 08/16/2024 11:14 AM [facility] Calcium 8.5 8.5 - 10.5 mg/dL LAB CHEMISTRY METHOD 08/16/2024 11:14 AM [facility] AST (SGOT) 34 10 - 42 unit/L LAB CHEMISTRY METHOD 08/16/2024 11:14 AM [facility] ALT (SGPT) 36 10 - 60 unit/L LAB CHEMISTRY METHOD 08/16/2024 11:14 AM [facility] Alkaline Phosphatase 115 42 - 121 unit/L LAB CHEMISTRY METHOD 08/16/2024 11:14 AM EDT [facility] Total Protein 5.3(L) 6.0 - 8.0 g/dL LAB CHEMISTRY METHOD 08/16/2024 11:14 AM [facility] Albumin 2.2(L) 3.2 - 5.0 g/dL LAB CHEMISTRY METHOD 08/16/2024 11:14 AM [facility] Total Bilirubin 0.5 0.0 - 1.4 mg/dL LAB CHEMISTRY METHOD 08/16/2024 11:14 AM [facility] Blood Venous blood specimen / Unknown Venipuncture / Unknown 08/16/2024 6:24 AM EDT 08/16/2024 9:46 AM EDT Alesia Jarrett MD LAB BLOOD ORDERABLES Fin al Result [facility] [address] [place] [address], * (ABNORMAL) Complete blood count (08/16/2024 6:24 AM EDT) WBC 10.4 4.8 - 10.8 K/mcL LAB HEMETOLOGY METHOD 08/16/2024 10:41 AM T [facility] RBC 3.10(L) 3.80 - 4.80 M/mcL LAB HEMETOLOGY METHOD 08/16/2024 10:41 AM T [facility] Hemoglobin 9.0(L) 11.5 - 16.0 g/dL LAB HEMETOLOGY METHOD 08/16/2024 10:41 AM T [facility] Hematocrit 28.7(L) 35.0 - 47.0 % LAB HEMETOLOGY METHOD 08/16/2024 10:41 AM EDT [facility] MCV 91.7 79.0 - 98.0 FL LAB HEMETOLOGY METHOD 08/16/2024 10:41 AM EDT [facility] MCH 28.8 27.0 - 32.0 pcg LAB HEMETOLOGY METHOD 08/16/2024 10:41 AM EDT [facility] MCHC 31.4(L) 32.0 - 37.0 g/dL LAB HEMETOLOGY METHOD 08/16/2024 10:41 AM EDT [facility] RDW 15.9(H) 11.0 - 15.0 % LAB HEMETOLOGY METHOD 08/16/2024 10:41 AM EDT [facility] Platelets 312 130 - 400 K/mcL LAB HEMETOLOGY METHOD 08/16/2024 10:41 AM EDT [facility] MPV 9.9 7.0 - 11.0 FL LAB HEMETOLOGY METHOD 08/16/2024 10:41 AM EDT [facility] NRBC 0.3 <1.0 % LAB HEMETOLOGY METHOD 08/16/2024 10:41 AM EDT [facility] NRBC Absolute 0.03 <0.10 K/mcL LAB HEMETOLOGY METHOD 08/16/2024 10:41 AM T [facility] Blood Venous blood specimen / Unknown Venipuncture / Unknown 08/16/2024 6:24 AM EDT 08/16/2024 9:46 AM EDT us Alesia Jarrett MD LAB BLOOD ORDERABLES Fin al Result [facility] [address] [place] [address], documented in this encounter Visit Diagnoses Diagnosis Hyperlipidemia, unspecified Weakness Other malaise and fatigue Chronic lymphocytic leukemia of B-cell type in remission (CMS/HCC V24, CMS/HCC V28) documented in this encounter Additional Health Concerns Assessment Noted Time PHQ-9 Depression Total Score: 11 025 10:22 AM EST documented as of this encounter Care Teams 3Rd Grade Teacher Relationship Specialty Start Date End Date James Ryan MD [address] [place] [address] PCP - General Internal Medicine 01/23/24 documented as of this encounter
--- OUTSIDE RECORDS SUMMARY | 2025-01-30 10:14 | XMS_ITS | Encounter Summary ---
Author Organization [facility] Address [address] [place] [address] Care Team Providers Care Casing Material Weigher Name Role Phone James Ryan MD Primary Care Provider [phone] Encounter Details Date Type Department Care Team (Late st Contact Info) Description 08/21/2024 Lab Requisition [facility] - Main Lab 299 [facility] [place] [address] Alesia Jarrett MD [address] [place] [address] Hyperlipidemia, unspecified; Chronic lymphocytic leukemia of B-cell [...] AM EST Office Visit Internal Medicine - [address] [address] James Ryan MD [address] [place] [address] 02/27/2025 12:30 PM EST Appointment [facility] Endoscopy [address] [place] [phone] Dillan Ng MD 299 [facility] [address] [place] [address] documented as of this encounter Procedures Procedure Name Priority Date/Time Associated Diagnosis Comments COMPLETE BLOOD COUNT Routine 08/22/2024 7:03 AM EDT Hyperlipidemia, unspecified Chronic lymphocytic leukemia of B-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 ([facility] V24, [facility] [place]28[place] Weakness BASIC METABOLIC PANEL Routine 08/22/2024 7:03 AM EDT Hyperlipidemia, unspecified Chronic lymphocytic leukemia of B-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 ([facility] V24, [facility] [place]28) Weakness documented in this encounter Results * (ABNORMAL) Complete blood count (08/22/2024 7:03 AM EDT) WBC 9.9 4.8 - 10.8 K/mcL LAB HEMETOLOGY METHOD 08/22/2024 10:26 AM [facility] RBC 2.90(L) 3.80 - 4.80 M/mcL LAB HEMETOLOGY METHOD 08/22/2024 10:26 AM [facility] Hemoglobin 8.4(L) 11.5 - 16.0 g/dL LAB HEMETOLOGY METHOD 08/22/2024 10:26 AM [facility] Hematocrit 26.7(L) 35.0 - 47.0 % LAB HEMETOLOGY METHOD 08/22/2024 10:26 AM [facility] MCV 93.7 79.0 - 98.0 FL LAB HEMETOLOGY METHOD 08/22/2024 10:26 AM [facility] MCH 29.5 27.0 - 32.0 pcg LAB HEMETOLOGY METHOD 08/22/2024 10:26 AM EDT [facility] MCHC 31.5(L) 32.0 - 37.0 g/dL LAB HEMETOLOGY METHOD 08/22/2024 10:26 AM EDT [facility] RDW 17.9(H) 11.0 - 15.0 % LAB HEMETOLOGY METHOD 08/22/2024 10:26 AM EDT [facility] Platelets 237 130 - 400 K/mcL LAB HEMETOLOGY METHOD 08/22/2024 10:26 AM EDT [facility] MPV 9.7 7.0 - 11.0 FL LAB HEMETOLOGY METHOD 08/22/2024 10:26 AM EDT [facility] NRBC 0.2 <1.0 % LAB HEMETOLOGY METHOD 08/22/2024 10:26 AM EDT [facility] NRBC Absolute 0.02 <0.10 K/mcL LAB HEMETOLOGY METHOD 08/22/2024 10:26 AM T [facility] Blood Venous blood specimen / Unknown Venipuncture / Unknown 08/22/2024 7:03 AM EDT 08/22/2024 9:16 AM EDT us Alesia Jarrett MD LAB BLOOD ORDERABLES Fin al Result [facility] [address] [place] [address], * (ABNORMAL) Basic metabolic panel (08/22/2024 7:03 AM EDT) Sodium 142 133 - 145 mmol/L LAB CHEMISTRY METHOD 08/22/2024 10:40 AM EDT [facility] Potassium 3.4(L) 3.5 - 5.5 mmol/L LAB CHEMISTRY METHOD 08/22/2024 10:40 AM [facility] Chloride 107 96 - 110 mmol/L LAB CHEMISTRY METHOD 08/22/2024 10:40 AM [facility] CO2 27 21 - 32 mmol/L LAB CHEMISTRY METHOD 08/22/2024 10:40 AM [facility] Anion Gap 8 3 - 11 LAB CHEMISTRY METHOD 08/22/2024 10:40 AM [facility] Glucose 76 70 - 100 mg/dL LAB CHEMISTRY METHOD 08/22/2024 10:40 AM [facility] BUN 14 5 - 25 mg/dL LAB CHEMISTRY METHOD 08/22/2024 10:40 AM [facility] Creatinine 0.93 0.50 - 1.10 mg/dL LAB CHEMISTRY METHOD 08/22/2024 10:40 AM [facility] eGFR 65 >=60 mL/min/1. 73m2 LAB CHEMISTRY METHOD 08/22/2024 10:40 AM [facility] Comment:Calculation based on the Chronic Kidney Disease Epidemiology Collaboration (CKD-EPI) equation refit without adjustment for race. 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
--- OUTSIDE RECORDS SUMMARY | 2025-01-30 10:14 | XMS_ITS | Encounter Summary ---
Author Organization [facility] Address [address] [place] [address] Care Team Providers Care News Reel Cameraman Name Role Phone James Ryan MD Primary Care Provider [phone] Encounter Details Date Type Department Care Team (Late Contact Info) Description 08/08/2024 Lab Requisition [facility] - Main Lab [address] [place] [address] Heidy Blanco MD [address] [place] [address] Encounter for other general examination Social History Tobacco Use Types Packs/Day Years [...] AM EST Office Visit Internal Medicine - [address] [address] James Ryan MD [address] [place] [address] 02/27/2025 12:30 PM EST Appointment [facility] Endoscopy [address] [place] [address] Dillan Ng MD 299 [facility] [address] [place] [address] documented as of this encounter Procedures Procedure Name Priority Date/Time Associated Diagnosis Comments MANUAL DIFFERENTIAL - SYSMEX WAM Routine 08/08/2024 4:48 AM EDT Encounter for other general examination CBC WITH AUTO DIFFERENTIAL Routine 08/08/2024 4:48 AM EDT Encounter for other general examination CBC AND DIFFERENTIAL Routine 08/08/2024 4:48 AM EDT Encounter for other general examination BASIC METABOLIC PANEL Routine 08/08/2024 4:48 AM EDT Encounter for other general examination documented in this encounter Results * (ABNORMAL) Manual differential (08/08/2024 4:48 AM EDT) Neutrophils % 69.0 % LAB HEMETOLOGY METHOD 08/08/2024 7:54 AM EDT [facility] Lymphocytes % 27.0 % LAB HEMETOLOGY METHOD 08/08/2024 7:54 AM EDT [facility] Monocytes % 4.0 % LAB HEMETOLOGY METHOD 08/08/2024 7:54 AM EDT [facility] Eosinophils % 0.0 % LAB HEMETOLOGY METHOD 08/08/2024 7:54 AM EDT [facility] Basophils % 0.0 % LAB HEMETOLOGY METHOD 08/08/2024 7:54 AM EDT [facility] Neutrophils Absolute Manual 11.80(H) 1.50 - 7.00 K/mcL LAB HEMETOLOGY METHOD 08/08/2024 7:54 AM EDT [facility] Lymphocytes Absolute 4.62 1.00 - 5.00 K/mcL LAB HEMETOLOGY METHOD 08/08/2024 7:54 AM EDT [facility] Monocytes Absolute Manual 0.68 0.20 - 1.00 K/[facility] LAB HEMETOLOGY METHOD 08/08/2024 7:54 AM EDT [facility] Eosinophils Absolute Manual 0.00 0.00 - 0.50 K/[facility] LAB HEMETOLOGY METHOD 08/08/2024 7:54 AM EDT [facility] Basophils Absolute Manual 0.00 0.00 - 0.20 K/[facility] LAB HEMETOLOGY METHOD 08/08/2024 7:54 AM EDT [facility] Rbc Morphology Consistent with indices Consistent with indices, Normal for [place] LAB HEMETOLOGY METHOD 08/08/2024 7:54 AM EDT [facility] Platelet Morphology - WAM See Note(A) Normal LAB HEMETOLOGY METHOD 08/08/2024 7:54 AM EDT [facility] Comment:PLT: Normal Blood Venous blood specimen / Unknown Venipuncture / Unknown 08/08/2024 4:48 AM EDT 08/08/2024 6:47 AM EDT Heidy Blanco MD LAB BLOOD ORDERABLES Final Res ult [facility] [address] [place] [address], * (ABNORMAL) CBC auto differential (08/08/2024 4:48 AM EDT) WBC 17.1(H) 4.8 - 10.8 K/[facility] LAB HEMETOLOGY METHOD 08/08/2024 7:54 AM EDT [facility] RBC 3.50(L) 3.80 - 4.80 M/[facility] LAB HEMETOLOGY METHOD 08/08/2024 7:54 AM EDT [facility] Hemoglobin 10.1(L) 11.5 - 16.0 g/dL LAB HEMETOLOGY METHOD 08/08/2024 7:54 AM EDT [facility] Hematocrit 30.5(L) 35.0 - 47.0 % LAB HEMETOLOGY METHOD 08/08/2024 7:54 AM EDT [facility] MCV 87.6 79.0 - 98.0 FL LAB HEMETOLOGY METHOD 08/08/2024 7:54 AM EDT [facility] MCH 29.0 27.0 - 32.0 pcg LAB HEMETOLOGY METHOD 08/08/2024 7:54 AM EDT [facility] MCHC 33.1 32.0 - 37.0 g/dL LAB HEMETOLOGY METHOD 08/08/2024 7[facility] RDW 14.8 11.0 - 15.0 % LAB HEMETOLOGY METHOD 08/08/2024 7:54 AM EDT [facility] Platelets 211 130 - 400 K/mcL LAB HEMETOLOGY METHOD 08/08/2024 7:54 AM EDT [facility] MPV 9.9 7.0 - 11.0 FL LAB HEMETOLOGY METHOD 08/08/2024 7:[facility] NRBC 0.0 <1.0 % LAB HEMETOLOGY METHOD 08/08/2024 7:54 AM EDT [facility] NRBC Absolute 0.00 <0.10 K/mcL LAB HEMETOLOGY METHOD 08/08/2024 7:54 AM T [facility] Blood Venous blood specimen / Unknown Venipuncture / Unknown 08/08/2024 4:48 AM EDT 08/08/2024 6:47 AM EDT us Heidy Blanco MD LAB BLOOD ORDERABLES Final Res ult [facility] [address] [place] [address], [place] [phone] * (ABNORMAL) Basic metabolic panel (08/08/2024 4:48 AM EDT) Sodium 133 133 - 145 mmol/L LAB CHEMISTRY METHOD 08/08/2024 7:30 AM [facility] Potassium 3.3(L) 3.5 - 5.5 mmol/L LAB CHEMISTRY METHOD 08/08/2024 7:30 AM [facility] Chloride 98 96 - 110 mmol/L LAB CHEMISTRY METHOD 08/08/2024 7:30 AM [facility] CO2 26 21 - 32 mmol/L LAB CHEMISTRY METHOD 08/08/2024 7:30 AM [facility] Anion Gap 9 3 - 11 LAB CHEMISTRY METHOD 08/08/2024 7:30 AM [facility] Glucose 73 70 - 100 mg/dL LAB CHEMISTRY METHOD 08/08/2024 7:30 AM [facility] BUN 22 5 - 25 mg/dL LAB CHEMISTRY METHOD 08/08/2024 7:30 AM [facility] Creatinine 0.82 0.50 - 1.10 mg/dL LAB CHEMISTRY METHOD 08/08/2024 7:30 AM [facility] eGFR 75 >=60 mL/min/1. 73m2 LAB CHEMISTRY METHOD 08/08/2024 7:30 AM [facility] Comment:Calculation based on the Chronic Kidney Disease Epidemiology Collaboration (CKD-EPI) equation refit without adjustment for race. BUN/Creatinine Ratio 26.8 LAB CHEMISTRY METHOD 08/08/2024 7:30 AM [facility] Calcium 8.6 8.5 - 10.5 mg/dL LAB CHEMISTRY METHOD 08/08/2024 7:30 AM [facility] Blood Venous blood specimen / Unknown Venipuncture / Unknown 08/08/2024 4:48 AM EDT 08/08/2024 6:47 AM EDT us Heidy Blanco MD LAB BLOOD ORDERABLES Final Res ult [facility] ([facility]) [facility] [address] [place] [address], documented in this encounter Visit Diagnoses Diagnosis Encounter for other general examination documented in this encounter Additional Health Concerns Assessment Noted Time PHQ-9 Depression Total Score: 11 05/25/ 025 10:22 AM EST documented as of this encounter Care Teams News Reel Cameraman Relationship Specialty Start Date End Date James Ryan MD [address] [place] [address] PCP - General Internal Medicine 01/23/24 documented as of this encounter
--- OUTSIDE RECORDS SUMMARY | 2025-01-30 10:14 | XMS_ITS ---
Continuity of Care Document (CCD) Created on: January 30, 2025 Berkley Lotus External Reference #: [id number] : [id number] Sex: Female Author Organization [facility] [address] [facility] [address] [place] [address] Phone [phone] Care Team Providers Care Fitness Coach Name Role Phone James Ryan M.D. Care Team Information Receive r [phone] Problems Active Problems Provider Date Heart disease Maura Hardwick M.D. Ons et: 01/09/2025 Osteoporosis Maura Hardwick M.D. Ons et: 01/09/2025 Non-toxic multinodular goiter Nu Saul Onset: 01/09/2025 Social History Type Date Description Comments Sex Female Sex Unknown Marital Status Legal Status: ETOH Use Never used alcohol Recreational Drug Use Never Used Drugs Allergies and adverse reactions Description No Known Drug Allergies Medications Active Medications SIG Qnty Indications Ordering Provider Date Diltiazem HCL ER Coated [id number] Caps ER 24HR James Ryan M.D. Meclizine [id number] Tablets James Ryan M.D. Pravastatin [id number] Tablets James Ryan M.D. [id number] Tablets Unknown [id number] Capsules James Willson M.D. Clonazepam0.5mg Tablets Unknown [id number] Tablets Take 1 Tablet By Mouth Every Day Unknown Vital Signs Date Vital Result Comment 01/09/2025 9:27am BP Systolic 130 mmHg BP Diastolic 90 mmHg Heart Rate 91 /min Height 64 inches 5'4 Weight 143.25 lb BMI (Body Mass Index) 24.6 kg/m2 Medical Devices Description No Information Available Encounters Type Date Location Provider Dx Diagnosis Office Visit 01/09/2025 9:15a Main Office Albert Nguyen NP E04.2 Nontoxic multinodular goiter R60.1 Generalized edema Assessments Date Code Description Provider 01/09/2025 E04.2 Nontoxic multinodular goiter Albert Nguyen NP 01/09/2025 R60.1 Generalized edema Albert Chen NP Plan of Treatment Future Appointment(s):* 01/08/2026 11:00 am - Albert Nguyen NP at Main Office 01/09/2025 - Albert Nguyen NP* E04.2 Nontoxic multinodular goiter * R60.1 Generalized edema* New Labs:* Cortisol - Am, Ordered: 01/09/25 * TSH RFX On Abnormal To Free T4, Ordered: 01/09/25 * TSH W/Reflex To Free T4, Ordered: 01/09/25 * Cortisol Am, Ordered: 01/09/25 * New Xrays:* Ultrasound Thyroid, Scheduled: 02/05/25 Functional Status Description No Information Available Mental Status Description No Information Available Referrals Description No Information Available
--- OUTSIDE RECORDS SUMMARY | 2025-01-30 10:14 | XMS_ITS | Encounter Summary ---
Author Organization [facility] Address [address] [place] [address] Care Team Providers Care Relay Engineer Name Role Phone James Ryan MD Primary Care Provider [phone] Encounter Details Date Type Department Care Team (Late Contact Info) Description 08/03/2024 Lab Requisition [facility] - Main Lab [address] [place] [address] Heidy Blanco MD [address] [place] [address] Encounter for other general examination Social History [...] AM EST Office Visit Internal Medicine - [address] [phone] James Ryan MD [address] [place] [address] 02/27/2025 12:30 PM EST Appointment [facility] Endoscopy [address] [place] [address] Dillan Ng MD 299 [facility] [address] [place] [address] documented as of this encounter Procedures Procedure Name Priority Date/Time Associated Diagnosis Comments MANUAL DIFFERENTIAL - SYSMEX WAM Routine 08/03/2024 6:44 AM EDT Encounter for other general examination CBC WITH AUTO DIFFERENTIAL Routine 08/03/2024 6:44 AM EDT Encounter for other general examination CBC AND DIFFERENTIAL Routine 08/03/2024 6:44 AM EDT Encounter for other general examination MAGNESIUM Routine 08/03/2024 6:44 AM EDT Encounter for other general examination COMPREHENSIVE METABOLIC PANEL Routine 08/03/2024 6:44 AM EDT Encounter for other general examination documented in this encounter Results * (ABNORMAL) Manual differential (08/03/2024 6:44 AM EDT) Neutrophils % 47.0 % LAB HEMETOLOGY METHOD 08/03/2024 12:26 PM EDT [facility] Lymphocytes % 38.0 % LAB HEMETOLOGY METHOD 08/03/2024 12:26 PM EDT [facility] Reactive Lymphocyte 6.00 % LAB HEMETOLOGY METHOD 08/03/2024 12:26 PM EDT [facility] Monocytes % 8.0 % LAB HEMETOLOGY METHOD 08/03/2024 12:26 PM EDT [facility] Eosinophils % 1.0 % LAB HEMETOLOGY METHOD 08/03/2024 12:26 PM EDT [facility] Basophils % 0.0 % LAB HEMETOLOGY METHOD 08/03/2024 12:26 PM EDT [facility] Neutrophils Absolute Manual 6.67 1.50 - 7.00 K/mcL LAB HEMETOLOGY METHOD 08/03/2024 12:26 PM EDT [facility] Lymphocytes Absolute 5.40(H) 1.00 - 5.00 K/mcL LAB HEMETOLOGY METHOD 08/03/2024 12:26 PM EDT [facility] Reactive Lymph Abs Manual 0.85(H) 0.00 - 0.00 lym LAB HEMETOLOGY METHOD 08/03/2024 12:26 PM EDT [facility] Monocytes Absolute Manual 1.14(H) 0.20 - 1.00 K/mcL LAB HEMETOLOGY METHOD 08/03/2024 12:26 PM EDT [facility] Eosinophils Absolute Manual 0.14 0.00 - 0.50 K/mcL LAB HEMETOLOGY METHOD 08/03/2024 12:26 PM EDT [facility] Basophils Absolute Manual 0.00 0.00 - 0.20 K/[facility] LAB HEMETOLOGY METHOD 08/03/2024 12:26 PM EDT [facility] Rbc Morphology Consistent with indices Consistent with indices, Normal for LAB HEMETOLOGY METHOD 08/03/2024 12:26 PM EDT [facility] Platelet Morphology - WAM See Note(A) Normal LAB HEMETOLOGY METHOD 08/03/2024 12:26 PM EDT [facility] Comment:PLT: Normal Blood Venous blood specimen / Unknown Venipuncture / Unknown 08/03/2024 6:44 AM EDT 08/03/2024 10:20 AM EDT us Heidy Blanco MD LAB BLOOD ORDERABLES Final Res ult [facility] [address] [place] [address], * (ABNORMAL) CBC auto differential (08/03/2024 6:44 AM EDT) [facility] WBC 14.2(H) 4.8 - 10.8 K/mcL LAB HEMETOLOGY METHOD 08/03/2024 12:26 PM [facility] RBC 3.60(L) 3.80 - 4.80 M/mcL LAB HEMETOLOGY METHOD 08/03/2024 12:26 PM [facility] Hemoglobin 10.7(L) 11.5 - 16.0 g/dL LAB HEMETOLOGY METHOD 08/03/2024 12:26 PM [facility] Hematocrit 33.3(L) 35.0 - 47.0 % LAB HEMETOLOGY METHOD 08/03/2024 12:26 PM [facility] MCV 92.8 79.0 - 98.0 FL LAB HEMETOLOGY METHOD 08/03/2024 12:26 PM [facility] MCH 29.8 27.0 - 32.0 pcg LAB HEMETOLOGY METHOD 08/03/2024 12:26 PM [facility] MCHC 32.1 32.0 - 37.0 g/dL LAB HEMETOLOGY METHOD 08/03/2024 12:26 PM [facility] RDW 15.5(H) 11.0 - 15.0 % LAB HEMETOLOGY METHOD 08/03/2024 12:26 PM [facility] Platelets 187 130 - 400 K/mcL LAB HEMETOLOGY METHOD 08/03/2024 12:26 PM [facility] MPV 10.5 7.0 - 11.0 FL LAB HEMETOLOGY METHOD 08/03/2024 12:26 PM [facility] NRBC 0.0 <1.0 % LAB HEMETOLOGY METHOD 08/03/2024 12:26 PM [facility] NRBC Absolute 0.00 <0.10 K/mcL LAB HEMETOLOGY METHOD 08/03/2024 12:26 PM EDT [facility] Blood Venous blood specimen / Unknown Venipuncture / Unknown 08/03/2024 6:44 AM EDT 08/03/2024 10:20 AM EDT us Heidy Blanco MD LAB BLOOD ORDERABLES Final Res ult Performing Organization Address City/[facility]/ZIP Co de Phone Number [facility] [address] [place] [address], [place] [phone] * Magnesium (08/03/2024 6:44 AM EDT) Pathologist [facility] Magnesium 1.9 1.9 - 2.6 mg/dL LAB CHEMISTRY METHOD 08/03/2024 12:00 PM EDT [facility] Blood Venous blood specimen / Unknown Venipuncture / Unknown 08/03/2024 6:44 AM EDT 08/03/2024 10:20 AM EDT us Heidy Blanco MD LAB BLOOD ORDERABLES Final Res ult Performing Organization Address [facility]/ZIP Co de Phone Number [facility] [address] [place] [address], [place] [phone] * (ABNORMAL) Comprehensive metabolic panel (08/03/2024 6:44 AM EDT) Pathologist [facility] Sodium 139 133 - 145 mmol/L LAB CHEMISTRY METHOD 08/03/2024 12:14 PM EDT [facility] Potassium 4.2 3.5 - 5.5 mmol/L LAB CHEMISTRY METHOD 08/03/2024 12:14 PM EDT [facility] Chloride 108 96 - 110 mmol/L LAB CHEMISTRY METHOD 08/03/2024 12:14 PM EDT [facility] CO2 24 21 - 32 mmol/L LAB CHEMISTRY METHOD 08/03/2024 12:14 PM EDT [facility] Anion Gap 7 3 - 11 LAB CHEMISTRY METHOD 08/03/2024 12:14 PM [facility] Glucose 73 70 - 100 mg/dL LAB CHEMISTRY METHOD 08/03/2024 12:14 PM [facility] BUN 18 5 - 25 mg/dL LAB CHEMISTRY METHOD 08/03/2024 12:14 PM [facility] Creatinine 1.11(H) 0.50 - 1.10 mg/dL LAB CHEMISTRY METHOD 08/03/2024 12:14 PM [facility] eGFR 52(L) >=60 mL/min/1. 73m2 LAB CHEMISTRY METHOD 08/03/2024 12:14 PM [facility] Comment:Calculation based on the Chronic Kidney Disease Epidemiology Collaboration (CKD-EPI) equation refit without adjustment for race. BUN/Creatinine Ratio 16.2 LAB CHEMISTRY METHOD 08/03/2024 12:14 PM [facility] Calcium 8.6 8.5 - 10.5 mg/dL LAB CHEMISTRY METHOD 08/03/2024 12:14 PM [facility] AST (SGOT) 14 10 - 42 unit/L LAB CHEMISTRY METHOD 08/03/2024 12:14 [facility] ALT (SGPT) 24 10 - 60 unit/L LAB CHEMISTRY METHOD 08/03/2024 12:14 PM [facility] Alkaline Phosphatase 76 42 - 121 unit/L LAB CHEMISTRY METHOD 08/03/2024 12:14 PM [facility] Total Protein 5.2(L) 6.0 - 8.0 g/dL LAB CHEMISTRY METHOD 08/03/2024 12:14 PM [facility] Albumin 2.7(L) 3.2 - 5.0 g/dL LAB CHEMISTRY METHOD 08/03/2024 12:14 PM [facility] Total Bilirubin 0.3 0.0 - 1.4 mg/dL LAB CHEMISTRY METHOD 08/03/2024 12:14 PM EDT [facility] Blood Venous blood specimen / Unknown Venipuncture / Unknown 08/03/2024 6:44 AM EDT 08/03/2024 10:20 AM EDT us Heidy Blanco MD LAB BLOOD ORDERABLES Final Res ult [facility] [address] [place] [address], documented in this encounter Visit Diagnoses Diagnosis Encounter for other general examination documented in this encounter Additional Health Concerns Assessment Noted Time PHQ-9 Depression Total Score: 11 05/25/ 025 10:22 AM EST documented as of this encounter Care Teams Relay Engineer Relationship Specialty Start Date End Date James Ryan MD [address] [place] [phone] PCP - General Internal Medicine 01/23/24 documented as of this encounter
--- OUTSIDE RECORDS SUMMARY | 2025-01-30 10:14 | XMS_ITS | Encounter Summary ---
Author Organization [facility] Address [address] [place] [address] Care Team Providers Care Sap Treasury Consultant Name Role Phone James Ryan MD Primary Care Provider [phone] Encounter Details Date Type Department Care Team (Late st Contact Info) Description 08/18/2024 Lab Requisition [facility] - Main Lab 299 [facility] [place] [address] Alesia Jarrett MD [address] [place] [address] Hyperlipidemia, unspecified; Chronic lymphocytic leukemia of B-cell [...] AM EST Office Visit Internal Medicine - [address] [phone] James Ryan MD [address] [place] [address] 02/27/2025 12:30 PM EST Appointment [facility] Endoscopy [address] [place] [phone] Dillan Ng MD 299 [facility] [address] [place] [address] documented as of this encounter Procedures Procedure Name Priority Date/Time Associated Diagnosis Comments COMPLETE BLOOD COUNT Routine 08/19/2024 8:07 AM EDT Hyperlipidemia, unspecified Chronic lymphocytic leukemia of B-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 ([facility] V24, [facility] V28) Weakness BASIC METABOLIC PANEL Routine 08/19/2024 8:07 AM EDT Hyperlipidemia, unspecified Chronic lymphocytic leukemia of B-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 ([facility] V24, [facility] V28) Weakness documented in this encounter Results * (ABNORMAL) Basic metabolic panel (08/19/2024 8:07 AM EDT) Sodium 141 133 - 145 mmol/L LAB CHEMISTRY METHOD 08/19/2024 11:[address] [facility] Potassium 3.2(L) 3.5 - 5.5 mmol/L LAB CHEMISTRY METHOD 08/19/2024 11:[address] [facility] Chloride 108 96 - 110 mmol/L LAB CHEMISTRY METHOD 08/19/2024 11:[address] [facility] CO2 27 21 - 32 mmol/L LAB CHEMISTRY METHOD 08/19/2024 11:[address] [facility] Anion Gap 6 3 - 11 LAB CHEMISTRY METHOD 08/19/2024 11:[address] [facility] Glucose 90 70 - 100 mg/dL LAB CHEMISTRY METHOD 08/19/2024 11:[address] [facility] BUN 20 5 - 25 mg/dL LAB CHEMISTRY METHOD 08/19/2024 11:[address] [facility] Creatinine 1.06 0.50 - 1.10 mg/dL LAB CHEMISTRY METHOD 08/19/2024 11:[address] [facility] eGFR 55(L) >=60 mL/min/1. 73m2 LAB CHEMISTRY METHOD 08/19/2024 11:[address] [facility] Comment:Calculation based on the Chronic Kidney Disease Epidemiology Collaboration (CKD-EPI) equation refit without adjustment for race. BUN/Creatinine Ratio 18.9 LAB CHEMISTRY METHOD 08/19/2024 11:[address] [facility] Calcium 8.4(L) 8.5 - 10.5 mg/dL LAB CHEMISTRY METHOD 08/19/2024 11:[address] [facility] Blood Venous blood specimen / Unknown Venipuncture / Unknown 08/19/2024 8:07 AM EDT 08/19/2024 10:00 AM EDT us Alesia Jarrett MD LAB BLOOD ORDERABLES Fin al Result [facility] [address] [place] [address], * (ABNORMAL) Complete blood count (08/19/2024 8:07 AM EDT) WBC 10.6 4.8 - 10.8 K/mcL LAB HEMETOLOGY METHOD 08/19/2024 10:[address] [facility] RBC 3.00(L) 3.80 - 4.80 M/mcL LAB HEMETOLOGY METHOD 08/19/2024 10:[address] [facility] Hemoglobin 8.8(L) 11.5 - 16.0 g/dL LAB HEMETOLOGY METHOD 08/19/2024 10:[address] [facility] Hematocrit 28.4(L) 35.0 - 47.0 % LAB HEMETOLOGY METHOD 08/19/2024 10:43 AM EDT [facility] MCV 93.4 79.0 - 98.0 FL LAB HEMETOLOGY METHOD 08/19/2024 10:43 AM T [facility] MCH 28.9 27.0 - 32.0 pcg LAB HEMETOLOGY METHOD 08/19/2024 10:43 AM T [facility] MCHC 31.0(L) 32.0 - 37.0 g/dL LAB HEMETOLOGY METHOD 08/19/2024 10:43 AM T [facility] RDW 17.0(H) 11.0 - 15.0 % LAB HEMETOLOGY METHOD 08/19/2024 10:[address] [facility] Platelets 314 130 - 400 K/mcL LAB HEMETOLOGY METHOD 08/19/2024 10:43 AM T [facility] MPV 9.6 7.0 - 11.0 FL LAB HEMETOLOGY METHOD 08/19/2024 10:43 AM EDT [facility] NRBC 0.6 <1.0 % LAB HEMETOLOGY METHOD 08/19/2024 10:[address] 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
--- OUTSIDE RECORDS SUMMARY | 2025-01-30 10:14 | XMS_ITS | Encounter Summary ---
Author Organization [facility] Address [address] [place] [address] Care Team Providers Care Entry Level Manager Name Role Phone James Ryan MD Primary Care Provider [phone] Encounter Details Date Type Department Care Team (Late st Contact Info) Description 08/25/2024 Lab Requisition [facility] - Main Lab 299 [facility] [place] [address] Alesia Jarrett MD [address] [place] [address] Hyperlipidemia, unspecified; Chronic lymphocytic leukemia of B-cell [...] AM EST Office Visit Internal Medicine - [address] [phone] James Ryan MD [address] [place] [address] 02/27/2025 12:30 PM EST Appointment [facility] Endoscopy [address] [place] [phone] Dillan Ng MD 299 [facility] [address] [place] [address] documented as of this encounter Procedures Procedure Name Priority Date/Time Associated Diagnosis Comments COMPLETE BLOOD COUNT Routine 08/26/2024 7:32 AM EDT Hyperlipidemia, unspecified Chronic lymphocytic leukemia of B-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 ([facility] V24, [facility] [place] V28) Weakness BASIC METABOLIC PANEL Routine 08/26/2024 7:32 AM EDT Hyperlipidemia, unspecified Chronic lymphocytic leukemia of B-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 ([facility] V24, [facility] [place] V28) Weakness documented in this encounter Results * (ABNORMAL) Complete blood count (08/26/2024 7:32 AM EDT) WBC 8.0 4.8 - 10.8 K/mcL LAB HEMETOLOGY METHOD 08/26/2024 9:51 AM [facility] RBC 3.00(L) 3.80 - 4.80 M/mcL LAB HEMETOLOGY METHOD 08/26/2024 9:51 AM [facility] Hemoglobin 8.7(L) 11.5 - 16.0 g/dL LAB HEMETOLOGY METHOD 08/26/2024 9:51 AM [facility] Hematocrit 28.0(L) 35.0 - 47.0 % LAB HEMETOLOGY METHOD 08/26/2024 9:51 AM [facility] MCV 93.3 79.0 - 98.0 FL LAB HEMETOLOGY METHOD 08/26/2024 9:51 AM [facility] MCH 29.0 27.0 - 32.0 pcg LAB HEMETOLOGY METHOD 08/26/2024 9:51 AM EDT [facility] MCHC 31.1(L) 32.0 - 37.0 g/dL LAB HEMETOLOGY METHOD 08/26/2024 9:51 AM EDT [facility] RDW 18.2(H) 11.0 - 15.0 % LAB HEMETOLOGY METHOD 08/26/2024 9:51 AM EDT [facility] Platelets 277 130 - 400 K/mcL LAB HEMETOLOGY METHOD 08/26/2024 9:51 AM EDT [facility] MPV 9.7 7.0 - 11.0 FL LAB HEMETOLOGY METHOD 08/26/2024 9:51 AM EDT [facility] NRBC 0.0 <1.0 % LAB HEMETOLOGY METHOD 08/26/2024 9:51 AM EDT [facility] NRBC Absolute 0.00 <0.10 K/mcL LAB HEMETOLOGY METHOD 08/26/2024 9:51 AM EDT [facility] Blood Venous blood specimen / Unknown Venipuncture / Unknown 08/26/2024 7:32 AM EDT 08/26/2024 9:20 AM EDT Alesia Jarrett MD LAB BLOOD ORDERABLES Fin al Result [facility] [address] [place] [address], * (ABNORMAL) Basic metabolic panel (08/26/2024 7:32 AM EDT) Sodium 142 133 - 145 mmol/L LAB CHEMISTRY METHOD 08/26/2024 10:23 AM EDT [facility] Potassium 3.6 3.5 - 5.5 mmol/L LAB CHEMISTRY METHOD 08/26[facility]2024 [facility] Chloride 108 96 - 110 mmol/L LAB CHEMISTRY METHOD 08/26/2024 10:23 AM [facility] CO2 25 21 - 32 mmol/L LAB CHEMISTRY METHOD 08/26/2024 10:23 AM [facility] Anion Gap 9 3 - 11 LAB CHEMISTRY METHOD 08/26/2024 10:23 AM [facility] Glucose 76 70 - 100 mg/dL LAB CHEMISTRY METHOD 08/26/2024 10:23 AM [facility] BUN 11 5 - 25 mg/dL LAB CHEMISTRY METHOD 08/26/2024 10:23 AM [facility] Creatinine 1.02 0.50 - 1.10 mg/dL LAB CHEMISTRY METHOD 08/26/2024 10:23 AM [facility] eGFR 58(L) >=60 mL/min/1. 73m2 LAB CHEMISTRY METHOD 08/26/2024 10:23 AM [facility] Comment:Calculation based on the Chronic Kidney Disease Epidemiology Collaboration (CKD-EPI) equation refit without adjustment for race. 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
--- OUTSIDE RECORDS SUMMARY | 2025-01-30 10:14 | XMS_ITS | Encounter Summary ---
Author Organization [facility] Address [address] [place] [address] Care Team Providers Care Furnace Unloader Name Role Phone James Ryan MD Primary Care Provider [phone] Encounter Details Date Type Department Care Team (Late st Contact Info) Description 08/30/2024 Lab Requisition [facility] - Main Lab 299 [facility] [place] [address] Alesia Jarrett MD [address] [place] [address] Hyperlipidemia, unspecified; Chronic lymphocytic leukemia of B-cell [...] your loved ones. For example, early childhood aide classroom or elderly care for an older adult? 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
== END 2025-01-30 09:25 | disposition home or self-care (01) ==
LOC: HO.HPHYS 09:11
PROVIDERS: PCP Internal Medicine; Visit Provider Physician Assistant
DX: M17.11 Unilateral primary osteoarthritis, right knee (principal)
CPT/HCPCS: 20610

== ENCOUNTER → 2025-01-30 09:11 | Outpatient (BNVA) | payer MEDICARE, MEDICAID, SELFPAY | PROVIDERS: PCP Internal Medicine; Visit Provider Physician Assistant | DX: M17.11 Unilateral primary osteoarthritis, right knee (principal) | CPT/HCPCS: 20610; 99212; J2003; J3301 ==